=== PATIENT | female | born 2000 | race Caucasian/White ===

== ENCOUNTER 2018-04-12 18:11 | Emergency (ER) | payer MEDICAID ==
--- NOTE | 2018-04-12 19:08 | ED Physician Documentation ---
PD HPI CHEST PAIN - Stated complaint Stated Complaint: Shoulder and rib pain - Chief complaint Chief Complaint: General - History obtained from History obtained from: Patient - History of Present Illness Timing - onset: How many days ago (2-3 days of left scapular/chest pain with movement, deep breathing, and coughing. Has some cough. No fevers, sore throat, nor congestion. No injury to the area.) Timing - onset during: Light activity Timing - duration: Days (2-3) Timing - details: Gradual onset, Still present Quality: Aching, Sharp, Pain Location: Left chest, Other (scapular area) Worsened by: Inspiration, Movement, Palpation (some tender left scapular area to leaning back against chair or with palpation), Position Associated symptoms: Cough (without sputum production nor fever.). No: Shortness of air (but hurts for deep breathing), Nausea, Vomiting, Feeling faint / dizzy, General Weakness, Palpitations Similar symptoms before: Has not had sx before Review of Systems Constitutional: denies: Fever, Chills, Myalgias Nose: reports: Congestion (mild). denies: Rhinorrhea / runny nose Throat: denies: Sore throat Cardiac: reports: Chest pain / pressure. denies: Palpitations, Pedal edema, Calf pain Respiratory: reports: Cough. denies: Dyspnea, Wheezing GI: denies: Abdominal Pain, Nausea, Vomiting, Diarrhea Skin: denies: Rash, Lesions PD PAST MEDICAL HISTORY - Past Medical History Past Medical History: No Respiratory: None - Past Surgical History Past Surgical History: No - Present Medications Home Medications: Ambulatory Orders Medication Instructions Recorded Confirmed Dexamethasone [Decadron] 4 mg PO DAILY #5 tablet 04/12/18 HYDROcod/ACETAM 5/325 [[place] 5/325] 1 tab PO Q6H PRN #20 tablet 04/12/18 - Allergies Allergies/Adverse Reactions: Allergies Allergy/AdvReac Type Severity Reaction Status Date / Time amoxicillin Allergy Unknown Verified 04/12/18 18:20 Penicillins Allergy Unknown Verified 04/12/18 18:19 - Social History Does the pt smoke?: Yes Smoking Status: Current every day smoker Does the pt drink ETOH?: Yes Does the pt have substance abuse?: Yes Substance Use and Type: Marijuana - Family History Family history: denies: Aortic aneursym, Aortic dissection - Immunizations Immunizations are current?: Yes PD ED PE NORMAL - Vitals Vital signs reviewed: Yes - General General: Alert and oriented X 3, Well developed/nourished, Other (appears uncomfortable with truncal movements and deep breathing. ) - HEENT HEENT: Ears normal, Pharynx benign - Neck Neck: Supple, no meningeal sign, No adenopathy - Cardiac Cardiac: RRR, No murmur - Respiratory Respiratory: Clear bilaterally - Abdomen Abdomen: Soft, Non tender - Back Back: No spinal TTP, Other (tender in lateral scapular area muscles. ) - Derm Derm: Normal color, Warm and dry, No rash - Extremities Extremities: No tenderness to palpate, Normal ROM s pain - Neuro Neuro: Alert and oriented X 3, No motor deficit, Normal speech Results - Vitals Vitals: Vital Signs - 24 hr 04/12/18 04/12/18 18:15 20:11 Temperature 37 C 37.0 C Heart Rate 73 84 Respiratory 14 17 Rate Blood Pressure 100/74 126/77 O2 Saturation 98 98 Oxygen O2 Source Room air - Rads (name of study) chest xray Radiology: Prelim report reviewed, EMP read contemporaneously (normal lung gallego, ribs, and heart size. ) PD MEDICAL DECISION MAKING - ED course Complexity details: considered differential (sounds pleuritic. Chest xray is normal. Could be secondary to smoking and allergies. Can treat for those potentials. ), d/w patient - Sepsis Event Vital Signs: Vital Signs - 24 hr 04/12/18 04/12/18 18:15 20:11 Temperature 37 C 37.0 C Heart Rate 73 84 Respiratory 14 17 Rate Blood Pressure 100/74 126/77 O2 Saturation 98 98 Oxygen O2 Source Room air Departure - Departure Disposition: 01 Home, Self Care Clinical Impression: Left sided chest pain, Pleurisy Condition: Stable Record reviewed to determine appropriate education?: Yes Instructions: ED Chest Pain Pleurisy Prescriptions: Dexamethasone [Decadron] 4 mg PO DAILY #5 tablet HYDROcod/ACETAM 5/325 [[place] 5/325] 1 tab PO Q6H PRN #20 tablet PRN Reason: Pain Comments: Your chest xray is okay. Presume this is some inflammation around the lung and chest wall called pleurisy. There is no signs of infection at this point. No collapsed lung or fluid around the lung. Your ribs appear normal. We will treated with steroid anti-inflammatory Decadron daily for 5 more days. Continue your Aleve 2 tablets twice daily. Add Tylenol or hydrocodone if needed for pain. Off work for 2-3 days. Recheck if not improved over the next several days to week. Forms: Activity restrictions Discharge Date/Time: 04/12/18 20:49
[2018-04-12] MEDS ORDERED: HYDROcod/ACETAM 5/325 MG TABLET PO STA (19:26)
[2018-04-12] MEDS ORDERED: NAPROXEN 250 MG TABLET PO STA (19:26)
[2018-04-12] MEDS ORDERED: DEXAMETHASONE 10 MG/ML VIAL PO STA (19:26)
[2018-04-12 20:12] VITALS: BP 126/77
--- NOTE | 2018-04-12 20:25 | XRAY Report ---
Procedure Date: 04/12/2018 Accession Number: [id number] / [id number] Procedure: XR - Chest 2 View X-Ray CPT Code: 27018 FULL RESULT: EXAM: CHEST RADIOGRAPHY EXAM DATE: 04/12/2018 07:57 PM. CLINICAL HISTORY: Chest pain left sided. COMPARISON: None. TECHNIQUE: 2 views. FINDINGS: Lungs/Pleura: No dense consolidation. No large effusion or pneumothorax. No pulmonary edema. Mediastinum: Heart and mediastinal contours are unremarkable. Other: None. IMPRESSION: No acute radiographic pulmonary abnormalities. RADIA
== END 2018-04-12 20:49 | disposition home or self-care (01) ==
LOC: ED 18:11
DX: R07.89 Other chest pain (principal); R09.1 Pleurisy; F17.200 Nicotine dependence, unspecified, uncomplicated
CPT/HCPCS: 71046; 99283; A9270

== ENCOUNTER 2018-04-19 15:52 | Emergency (ER) | payer MEDICAID ==
[2018-04-19 16:12] VITALS: BP 119/78
--- NOTE | 2018-04-19 16:58 | ED Physician Documentation ---
PD HPI CHEST PAIN - Stated complaint Stated Complaint: BACK PX - Chief complaint Chief Complaint: Back Pain - History obtained from History obtained from: Patient - History of Present Illness Timing - onset: How many weeks ago (2) Timing - onset during: Light activity Timing - duration: Weeks (2) Timing - details: Gradual onset, Still present, Waxing and waning (had pain left upper chest and scapula area without obvious cause, worse with breathing and dshoulder movement. Seen in ED 5 days ago with Rx given and normal CXR. Same symptoms continue. Had decreased moderately with steroids and pain meds. Now returns.) Quality: Aching, Sharp, Pain Location: Left chest, Left shoulder/arm Improved by: Rest, Other medication Worsened by: Inspiration, Movement, Palpation Associated symptoms: Shortness of air. No: Feeling faint / dizzy, General Weakness, Palpitations Recently seen: Emergency Dept (5 days ago or so with CXR and Rx for decadron and pain meds.) Review of Systems Constitutional: denies: Fever, Chills, Myalgias, Fatigue Respiratory: reports: Cough. denies: Dyspnea, Wheezing GI: denies: Nausea, Vomiting, Diarrhea Skin: denies: Rash, Lesions Neurologic: denies: Focal weakness, Numbness, Altered mental status, Headache PD PAST MEDICAL HISTORY - Past Medical History Past Medical History: No Respiratory: None - Past Surgical History Past Surgical History: No - Present Medications Home Medications: Ambulatory Orders Medication Instructions Recorded Confirmed Albuterol 2.5 mg INH Q4H PRN #30 neb 04/19/18 Albuterol Sulf [Ventolin Hfa 1 - 2 puffs INH Q4HR PRN #1 inhaler 04/19/18 Inhaler] Dexamethasone [Decadron] 4 mg PO DAILY #5 tablet 04/19/18 HYDROcod/ACETAM 5/325 [[place] 5/325] 1 tab PO Q6H PRN #15 tablet 04/19/18 Naproxen 375 mg PO BID #20 tablet 04/19/18 - Allergies Allergies/Adverse Reactions: Allergies Allergy/AdvReac Type Severity Reaction Status Date / Time amoxicillin Allergy Unknown Verified 04/19/18 16:12 Penicillins Allergy Unknown Verified 04/19/18 16:12 - Social History Does the pt smoke?: Yes Smoking Status: Current every day smoker Does the pt drink ETOH?: Yes ETOH Use: Wine, Beer, Liquor Does the pt have substance abuse?: Yes Substance Use and Type: Marijuana - Immunizations Immunizations are current?: Yes PD ED PE NORMAL - Vitals Vital signs reviewed: Yes - General General: Alert and oriented X 3, No acute distress, Well developed/nourished - HEENT HEENT: Atraumatic, Ears normal, Pharynx benign - Neck Neck: Supple, no meningeal sign, No bony TTP, No adenopathy - Cardiac Cardiac: RRR, No murmur - Respiratory Respiratory: Clear bilaterally - Abdomen Abdomen: Soft, Non tender - Back Back: No spinal TTP, Other (left lateral scapular area with some tenderness, no rash nor sores. Seems muscular to some degree. ) - Derm Derm: Normal color, Warm and dry, No rash - Neuro Neuro: Alert and oriented X 3, No motor deficit, No sensory deficit, Normal speech Results - Vitals Vitals: Oxygen O2 Source Room air PD MEDICAL DECISION MAKING - ED course Complexity details: considered differential (still not sure of the cause of the pain, seems pleurisy with mild cough, and sems musculoskeletal. She does carry heavy personal bag on left shoulder often during the day, I discovered this visit. ), d/w patient - Sepsis Event Vital Signs: Oxygen O2 Source Room air Departure - Departure Disposition: 01 Home, Self Care Clinical Impression: Pleurisy, Pain of left scapula Condition: Stable Record reviewed to determine appropriate education?: Yes Instructions: Pleurisy, ED Neck Back Pain General Prescriptions: Albuterol Sulf [Ventolin Hfa Inhaler] 1 - 2 puffs INH Q4HR PRN #1 inhaler PRN Reason: Shortness Of Air/Wheezing Albuterol 2.5 mg INH Q4H PRN #30 neb PRN Reason: Wheezing Dexamethasone [Decadron] 4 mg PO DAILY #5 tablet HYDROcod/ACETAM 5/325 [[place] 5/325] 1 tab PO Q6H PRN #15 tablet PRN Reason: Pain Naproxen 375 mg PO BID #20 tablet Comments: Your pain still sounds muscular like the shoulder blade and perhaps some pleurisy related to some coughing and inflammation. Switch carrying your heavy bag from the left shoulder to the right shoulder. Use naproxen twice daily for the next 7-10 days. Decadron for inflammation. Add pain medicine if needed. Use albuterol 4 times a day if needed for wheezing cough or trouble breathing. Recheck if still not improved over the next several days to a week. Discharge Date/Time: 04/19/18 17:56
[2018-04-19] MEDS ORDERED: HYDROcod/ACETAM 5/325 MG TABLET PO STA (17:19)
[2018-04-19] MEDS ORDERED: DEXAMETHASONE 10 MG/ML VIAL PO STA (17:19)
== END 2018-04-19 17:56 | disposition home or self-care (01) ==
LOC: ED 15:52
DX: R09.1 Pleurisy (principal); M25.512 Pain in left shoulder
CPT/HCPCS: 99283; A9270

== ENCOUNTER 2018-06-08 23:51 | Outpatient (CLI) | payer MEDICAID | END 2018-06-08 23:52 | disposition critical access hospital (66) | LOC: EMS 23:51 | PROVIDERS: ATTEND Surgery | DX: R52 Pain, unspecified (principal) | CPT/HCPCS: A0425; A0429; A0999 ==

== ENCOUNTER 2018-06-09 00:16 | Emergency (ER) | payer MEDICAID ==
[2018-06-09 00:40] LABS: MUDS CUTOFF CONCENTRATIONS CUTOFF CONC BELOW:
[2018-06-09 00:54] LABS: HCG UR QUAL NEGATIVE
[2018-06-09 00:58] LABS: AMPHETAMINE SCREEN,URINE NEGATIVE (NEGATIVE); BENZODIAZEPINES SCREEN, URINE NEGATIVE (NEGATIVE); COCAINE SCREEN URINE NEGATIVE (NEGATIVE); METHADONE SCREEN, URINE NEGATIVE (NEGATIVE); METHAMPHETAMINES SCREEN, URINE NEGATIVE (NEGATIVE); OPIATE SCREEN, URINE NEGATIVE (NEGATIVE); OXYCODONE SCREEN, URINE NEGATIVE (NEGATIVE); PROPOXYPHENE SCREEN, URINE NEGATIVE (NEGATIVE); TRICYCLIC ANTIDEPRESSANT,URINE NEGATIVE (NEGATIVE)
--- NOTE | 2018-06-09 01:20 | ED Physician Documentation ---
History of Present Illness - Stated complaint Stated Complaint: MUSHROOM INJESTION - Chief complaint Chief Complaint: General - History obtained from History obtained from: Patient, EMS - History of Present Illness Timing: Today - Additonal information Additional information: Patient is a 17 year old female with no significant past medical history who is presenting to the emergency department for not feeling well after eating mushrooms. According to patient, patient's boyfriend and ems patient ate a couple of handfuls of mushrooms and smoked some marijuana and now has some abdominal pain. Review of Systems Ten Systems: 10 systems reviewed and negative Constitutional: denies: Fever, Chills Eyes: reports: Reviewed and negative Ears: reports: Reviewed and negative Throat: reports: Reviewed and negative Cardiac: denies: Chest pain / pressure, Palpitations Respiratory: denies: Dyspnea, Cough GI: reports: Abdominal Pain, Nausea. denies: Vomiting, Constipation, Diarrhea : denies: Dysuria, Frequency Skin: denies: Rash, Lesions Musculoskeletal: denies: Neck pain, Back pain Neurologic: reports: Confused, Altered mental status. denies: Generalized weakness, Head injury, LOC PD PAST MEDICAL HISTORY - Past Medical History Respiratory: None Neuro: Seizure disorder - Past Surgical History Past Surgical History: No - Present Medications Home Medications: Ambulatory Orders Medication Instructions Recorded Confirmed Albuterol 2.5 mg INH Q4H PRN #30 neb 04/19/18 Albuterol Sulf [Ventolin Hfa 1 - 2 puffs INH Q4HR PRN #1 inhaler 04/19/18 Inhaler] Dexamethasone [Decadron] 4 mg PO DAILY #5 tablet 04/19/18 HYDROcod/ACETAM 5/325 [[place] 5/325] 1 tab PO Q6H PRN #15 tablet 04/19/18 Naproxen 375 mg PO BID #20 tablet 04/19/18 - Allergies Allergies/Adverse Reactions: Allergies Allergy/AdvReac Type Severity Reaction Status Date / Time amoxicillin Allergy Unknown Verified 06/09/18 00:22 Penicillins Allergy Unknown Verified 06/09/18 00:22 - Social History Does the pt smoke?: Yes Smoking Status: Current every day smoker Does the pt drink ETOH?: Yes Does the pt have substance abuse?: Yes Substance Use and Type: Other - Immunizations Immunizations are current?: Yes PD ED PE NORMAL - Vitals Vital signs reviewed: Yes - General General: Alert and oriented X 3, No acute distress - HEENT HEENT: Atraumatic - Cardiac Cardiac: RRR - Respiratory Respiratory: No respiratory distress - Abdomen Abdomen: Soft - Derm Derm: Normal color, Warm and dry - Extremities Extremities: No deformity - Neuro Neuro: Alert and oriented X 3, No motor deficit, Normal speech Eye Opening: Spontaneous PD ED PE EXPANDED - HEENT HEENT: Dry mucous membranes - Eyes Eyes: Other (dilated pupils) - Abdomen Abdomen: Tender to palpation, Generalized/diffuse. No: Rebound, Guarding Results - Vitals Vitals: Vital Signs - 24 hr 06/09/18 06/09/18 00:14 01:01 Temperature 37.1 C Heart Rate 80 71 Respiratory 15 15 Rate Blood Pressure 140/102 H 140/93 H O2 Saturation 100 99 Oxygen O2 Source Room air - Labs Labs: Laboratory Tests 06/09/18 06/09/18 00:30 00:30 Ur Specific [place] 1.020 Urine HCG, Qual NEGATIVE Urine Opiates Screen NEGATIVE Ur Oxycodone Screen NEGATIVE Urine Methadone Screen NEGATIVE Ur Propoxyphene Screen NEGATIVE Ur Barbiturates Screen NEGATIVE Ur Tricyclics Screen NEGATIVE Ur Phencyclidine Scrn NEGATIVE Ur Amphetamine Screen NEGATIVE U Methamphetamines Scrn NEGATIVE U Benzodiazepines Scrn NEGATIVE Urine Cocaine Screen NEGATIVE U Cannabinoids Screen POSITIVE H PD MEDICAL DECISION MAKING - ED course Complexity details: reviewed old records, reviewed results, re-evaluated patient , considered differential, d/w patient ED course: Patient was seen and examined at bedside. Urine was collected. Patient was observed in the emergency department. Patient was able to ambulate without difficulty and attend to conversation. patient was tolerating PO without difficulty. patient required no further work up at this time and was stable for discharge with outpatient follow up. - Sepsis Event Vital Signs: Vital Signs - 24 hr 06/09/18 06/09/18 00:14 01:01 Temperature 37.1 C Heart Rate 80 71 Respiratory 15 15 Rate Blood Pressure 140/102 H 140/93 H O2 Saturation 100 99 Oxygen O2 Source Room air Departure - Departure Disposition: 01 Home, Self Care Clinical Impression: Accidental overdose Condition: Good Instructions: ED Overdose Accidental Follow-Up: primary,care provider [Other] - As Needed Comments: Your symptoms today were secondary to taking too much of the mushrooms and combining with marijuana had those effects. You need to be very careful with with how much and what you take because it can have very severe side effects including . You should return to the emergency department for worsening abdominal pain, or other new worsening or uncontrollable symptoms.
[2018-06-09 01:37] VITALS: BP 139/95
== END 2018-06-09 01:54 | disposition home or self-care (01) ==
LOC: EDBD → EDUNIT# → ED 00:16
DX: T62.0X1A Toxic effect of ingested mushrooms, accidental (unintentional), initial encounter (principal); R10.9 Unspecified abdominal pain; F17.200 Nicotine dependence, unspecified, uncomplicated
CPT/HCPCS: 80306; 81025; 99283

== ENCOUNTER 2019-01-31 15:03 | Emergency (ER) | payer MEDICAID ==
[2019-01-31] MEDS ORDERED: MELOXICAM 7.5 MG TABLET PO STA (15:17)
[2019-01-31] MEDS ORDERED: ALBUTEROL NEB 2.5 MG/3 ML INH STA (15:17)
--- NOTE | 2019-01-31 15:22 | ED Physician Documentation ---
History of Present Illness - Stated complaint Stated Complaint: SOA - Chief complaint Chief Complaint: Resp - History obtained from History obtained from: Patient - History of Present Illness Timing: How many weeks ago (3) Pain level max: 8 Pain level now: 6 - Additonal information Additional information: 18-year-old female presents to the emergency department with pain with breathing, mainly in the left lung for the past 3 weeks. Nothing makes it better. She took Tylenol without relief. Worse with breathing. States has had a mild cough. To smoke cigarettes as well as marijuana. Is not on control pills. No recent travel. No immobilization or surgeries. States this feels similar to when she had pleurisy in the past. Review of Systems Constitutional: denies: Fever, Chills Nose: denies: Congestion Cardiac: denies: Palpitations, Pedal edema, Calf pain GI: denies: Abdominal Pain, Vomiting, Diarrhea, Hematemesis, Bloody / black stool : denies: Dysuria, Frequency, Hesitancy, Now EGA Skin: denies: Rash Musculoskeletal: denies: Neck pain, Back pain Neurologic: denies: Headache PD PAST MEDICAL HISTORY - Past Medical History Past Medical History: Yes Respiratory: None Neuro: Seizure disorder - Past Surgical History Past Surgical History: No - Present Medications Home Medications: Ambulatory Orders Medication Instructions Recorded Confirmed Albuterol Sulf [Ventolin Hfa 1 - 2 puffs INH Q4HR PRN #1 inhaler 01/31/19 Inhaler] Meloxicam [Mobic] 15 mg PO DAILY PRN #20 tablet 01/31/19 - Allergies Allergies/Adverse Reactions: Allergies Allergy/AdvReac Type Severity Reaction Status Date / Time amoxicillin Allergy Unknown Verified 01/31/19 15:11 Penicillins Allergy Unknown Verified 01/31/19 15:11 - Social History Does the pt smoke?: Yes Smoking Status: Current every day smoker Does the pt drink ETOH?: Yes Does the pt have substance abuse?: Yes - Immunizations Immunizations are current?: Yes PD ED PE NORMAL - Vitals Vital signs reviewed: Yes - General General: Alert and oriented X 3, No acute distress, Well developed/nourished - HEENT HEENT: PERRL, Moist mucous membranes - Neck Neck: Supple, no meningeal sign - Cardiac Cardiac: RRR, Strong equal pulses - Respiratory Respiratory: No respiratory distress, Other (Diminished breath sounds bilaterally) - Derm Derm: Warm and dry - Extremities Extremities: No edema, No calf tenderness / cord - Neuro Neuro: Alert and oriented X 3 - Psych Psych: Normal mood, Normal affect Results - Vitals Vitals: Vital Signs - 24 hr 01/31/19 01/31/19 01/31/19 15:07 15:32 16:30 Temperature 36.1 C L Heart Rate 64 64 66 Respiratory 14 16 18 Rate Blood Pressure 110/50 L 114/63 O2 Saturation 100 98 Oxygen O2 Source Room air - Rads (name of study) Chest x-ray Radiology: Prelim report reviewed, EMP read contemporaneously, See rad report ( Negative chest ) PD MEDICAL DECISION MAKING - ED course Complexity details: reviewed results, re-evaluated patient, considered bong junior, d/w patient ED course: Patient feels much better after nebulizer treatment. She was also given a dose of Mobic. Symptoms nearly resolved. Likely that she has inflammatory changes in her lungs from her smoking, chemical use at work and marijuana use. Will prescribe an inhaler for home. No evidence of pulmonary embolus clinically. Patient counseled regarding signs and symptoms for which I believe and urgent re-evaluation would be necessary. Patient with good understanding of and agreement to plan and is comfortable going home at this time This document was made in part using voice recognition software. While efforts are made to proofread this document, sound alike and grammatical errors may occur. Departure - Departure Disposition: 01 Home, Self Care Clinical Impression: Asthma Qualifiers: Asthma severity: unspecified severity Asthma persistence: unspecified Asthma complication type: with acute exacerbation Qualified Code(s): J45.901 - Unspecified asthma with (acute) exacerbation Condition: Good Instructions: ED Reactive Airway Disease Follow-Up: your,doctor in 1 week [Other] Prescriptions: Albuterol Sulf [Ventolin Hfa Inhaler] 1 - 2 puffs INH Q4HR PRN #1 inhaler PRN Reason: Shortness Of Air/Wheezing Meloxicam [Mobic] 15 mg PO DAILY PRN #20 tablet PRN Reason: pain Comments: Return if you worsen. Follow-up with your doctor for further care. You should use the inhaler as needed for difficulty breathing. This should continue to improve with the inhaler usage. Discharge Date/Time: 01/31/19 16:36
[2019-01-31 16:31] VITALS: BP 114/63
[2019-01-31] MEDS ORDERED: DEXAMETHASONE 10 MG/ML VIAL PO STA (16:31)
[2019-01-31] MEDS ORDERED: CHERRY SYRUP 10 ML UDC PO ONE (16:31)
--- NOTE | 2019-01-31 16:36 | XRAY Report ---
Reason: dyspnea Procedure Date: 01/31/2019 Accession Number: [id number] / [id number] Procedure: XR - Chest 2 View X-Ray CPT Code: 42288 FULL RESULT: EXAM: CHEST RADIOGRAPHY EXAM DATE: 01/31/2019 04:06 PM. CLINICAL HISTORY: Dyspnea. COMPARISON: CHEST 2 VIEW 04/12/2018 7:52 PM. TECHNIQUE: 2 views. FINDINGS: Lungs/Pleura: No focal opacities evident. No pleural effusion. No pneumothorax. Normal volumes. Mediastinum: Heart and mediastinal contours are unremarkable. Other: None. IMPRESSION: Negative chest RADIA
== END 2019-01-31 16:36 | disposition home or self-care (01) ==
LOC: ED 15:03
DX: J45.901 Unspecified asthma with (acute) exacerbation (principal); F17.210 Nicotine dependence, cigarettes, uncomplicated; F12.90 Cannabis use, unspecified, uncomplicated
CPT/HCPCS: 71046; 94640; 94664; 99283; A9270

== ENCOUNTER 2019-03-19 10:41 | Outpatient (CLI) | payer MEDICAID ==
[2019-03-19 18:58] LABS: BASOPHILS # (AUTO) 0.1 10^3/uL (0.0-0.1); BASOPHILS % (AUTO) 0.6 %; EOSINOPHILS # (AUTO) 0.3 10^3/uL (0.0-0.7); EOSINOPHILS % (AUTO) 3.4 %; HGB - HEMOGLOBIN 13.2 g/dL (12.0-16.0); LYMPHOCYTES % (AUTO) 23.2 %; MEAN CORPUSCULAR HEMOGLOBIN 30.2 pg (27.0-31.0); MEAN CORPUSCULAR HGB CONC 33.3 g/dL (32.0-36.0); MEAN CORPUSCULAR VOLUME 90.8 fL (81.0-99.0); MEAN PLATELET VOLUME 7.6 fL (7.9-10.8); MONOCYTES # (AUTO) 0.7 10^3/uL (0.0-1.0); MONOCYTES % (AUTO) 8.2 %; NEUTROPHILS # (AUTO) 5.5 10^3/uL (1.5-6.6); NEUTROPHILS % (AUTO) 64.6 %; PLT - PLATELET COUNT 364 10^3/uL (130-450); RED BLOOD COUNT 4.38 10^6/uL (4.20-5.40); WHITE BLOOD COUNT 8.5 x10^3/uL (4.8-10.8)
[2019-03-19 19:13] LABS: ALBUMIN 4.5 g/dL (3.2-5.5); ALBUMIN/GLOBULIN RATIO 1.5 (1.0-2.2); ALKALINE PHOSPHATASE 53 IU/L (42-121); ALT ALANINE AMINOTRANSFERASE 14 IU/L (10-60); AST ASPARTATE AMINOTRANSFERASE 24 IU/L (10-42); BUN - BLOOD UREA NITROGEN 13 mg/dL (6-20); CALCIUM 9.4 mg/dL (8.5-10.3); CARBON DIOXIDE - CO2 28 mmol/L (21-32); CHLORIDE 101 mmol/L (101-111); CHOL/HDL RATIO 2.5 (<4.4); CHOLESTEROL 170 mg/dL; CREATININE 0.5 mg/dL (0.4-1.0); GFR - MDRD 157 (>89); GLUCOSE 79 mg/dL (70-100); HDL CHOLESTEROL 69 mg/dL; LDL CHOLESTEROL,CALCULATED 84 mg/dL; LDL/HDL RATIO 1.2 (<4.4); SODIUM 136 mmol/L (135-145); TOTAL PROTEIN 7.5 g/dL (6.7-8.2); URIC ACID 3.2 mg/dL (2.6-7.2); VLDL CHOLESTEROL 17 mg/dL
[2019-03-19 19:17] LABS: RHEUMATOID FACTOR NEGATIVE (Negative)
[2019-03-19 19:18] LABS: CRP - C-REACTIVE PROTEIN < 1.0 mg/dL (0-1.0)
[2019-03-21 13:06] LABS: ANA SCREEN NEGATIVE (NEGATIVE)
== END 2019-03-19 10:42 | disposition home or self-care (01) ==
LOC: LAB.WCP 10:41
PROVIDERS: ATTEND Family Medicine
DX: Z00.00 Encounter for general adult medical examination without abnormal findings (principal); M25.50 Pain in unspecified joint
CPT/HCPCS: 36415; 80053; 80061; 83721; 84443; 84550; 85025; 85651; 86038; 86140; 86200; 86430

== ENCOUNTER 2019-06-27 12:41 | Emergency (ER) | payer MEDICAID ==
[2019-06-27] MEDS ORDERED: ONDANSETRON 4 MG/2 ML VIAL IVP STA (14:00)
[2019-06-27] MEDS ORDERED: SODIUM CHLORIDE 0.9% 1,000 ML IV ONE (14:00)
--- NOTE | 2019-06-27 14:03 | ED Physician Documentation ---
PD HPI ABD PAIN - Stated complaint Stated Complaint: NAUSEA - Chief complaint Chief Complaint: General - History obtained from History obtained from: Patient - History of Present Illness Timing - onset: How many weeks ago (2) Timing - details: Intermittant Associated symptoms: Nausea, Vomiting Similar symptoms before: Has not had sx before - Additional information Additional information: The patient is a 18-year-old female who presents with vomiting that has been occurring intermittently for the past 2 weeks. She has had multiple episodes of vomiting since yesterday. She reports periumbilical abdominal discomfort that has been waxing and waning. She denies fever, diarrhea, or dysuria. Her last menstrual period was about 7 weeks ago, and she has had positive home test. She denies any prior pregnancies. She has scheduled an . Review of Systems Constitutional: denies: Fever Nose: denies: Congestion Throat: denies: Sore throat Cardiac: denies: Chest pain / pressure Respiratory: denies: Dyspnea, Cough GI: reports: Abdominal Pain (periumbilical), Nausea, Vomiting. denies: Diarrhea : reports: LMP (7 weeks ago.). denies: Dysuria, Discharge, Vaginal bleeding Skin: denies: Rash Musculoskeletal: denies: Back pain Neurologic: denies: Focal weakness, Numbness, Headache PD PAST MEDICAL HISTORY - Past Medical History Respiratory: None Neuro: Seizure disorder Musculoskeletal: Chronic back pain - Past Surgical History Past Surgical History: No - Present Medications Home Medications: Ambulatory Orders Medication Instructions Recorded Confirmed Ondansetron Odt [Zofran] 4 mg TL Q6H PRN #10 tablet 06/27/19 Maddock's Wort 150 mg PO 06/27/19 - Allergies Allergies/Adverse Reactions: Allergies Allergy/AdvReac Type Severity Reaction Status Date / Time amoxicillin Allergy Unknown Verified 06/27/19 12:51 Penicillins Allergy Unknown Verified 06/27/19 12:51 - Social History Does the pt smoke?: Yes Smoking Status: Current every day smoker Does the pt drink ETOH?: Yes Does the pt have substance abuse?: Yes - Immunizations Immunizations are current?: Yes PD ED PE NORMAL - Vitals Vital signs reviewed: Yes (normal) - General General: Alert and oriented X 3, Well developed/nourished - HEENT HEENT: Atraumatic, Pharynx benign - Neck Neck: Supple, no meningeal sign, No adenopathy - Cardiac Cardiac: RRR - Respiratory Respiratory: No respiratory distress, Clear bilaterally - Abdomen Abdomen: Normal bowel sounds, Soft, Non tender, No organomegaly - Back Back: No CVA TTP - Derm Derm: No rash - Extremities Extremities: No edema, No calf tenderness / cord - Neuro Neuro: Alert and oriented X 3, No motor deficit, Normal speech Results - Vitals Vitals: Vital Signs - 24 hr 06/27/19 06/27/19 12:48 16:11 Temperature 36.9 C 36.7 C Heart Rate 71 74 Respiratory 18 20 Rate Blood Pressure 110/56 L 117/73 O2 Saturation 100 100 Oxygen O2 Source Room air - Labs Labs: Laboratory Tests 06/27/19 15:15 Ur Specific [place] 1.025 Urine HCG, Qual POSITIVE PD MEDICAL DECISION MAKING - ED course Complexity details: reviewed results, re-evaluated patient, considered differential, d/w patient ED course: The patient's presentation is most consistent with vomiting of . Her abdominal examination is benign. Urinalysis is negative. test is positive. She does not have pelvic pain or vaginal bleeding to suggest an ectopic . Treatment in the emergency department included administration of normal saline 1 L IV, and Zofran 4 mg IV. Her symptoms markedly improved with the above treatment. She is being discharged with prescription for Zofran. 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 Departure - Departure Disposition: 01 Home, Self Care Clinical Impression: Vomiting during , First trimester Condition: Stable Instructions: ED Preg Morning Sickness Follow-Up: [facility] [Provider Group] Prescriptions: Ondansetron Odt [Zofran] 4 mg TL Q6H PRN #10 tablet PRN Reason: Nausea / Vomiting Comments: Drink plenty of fluids. You can use Zofran as prescribed as needed for nausea. Follow-up with primary provider next week as planned. Return to the emergency department if you develop increasing abdominal pain, persistent vomiting, or otherwise worsening symptoms. Discharge Date/Time: 06/27/19 16:13
[2019-06-27 15:36] LABS: HCG UR QUAL POSITIVE
[2019-06-27 16:11] VITALS: BP 117/73
== END 2019-06-27 16:13 | disposition home or self-care (01) ==
LOC: ED 12:41
DX: O21.9 Vomiting of pregnancy, unspecified (principal); Z3A.01 Less than 8 weeks gestation of pregnancy; O99.331 Smoking (tobacco) complicating pregnancy, first trimester
CPT/HCPCS: 81025; 96361; 96374; 99284

== ENCOUNTER 2019-06-29 07:06 | Emergency (ER) | payer MEDICAID ==
[2019-06-29] MEDS ORDERED: SODIUM CHLORIDE 0.9% 1,000 ML IV ONE ×2 (07:12)
[2019-06-29] MEDS ORDERED: ONDANSETRON 4 MG/2 ML VIAL IVP STA (07:20)
[2019-06-29 07:44] LABS: GLUCOSE, URINE (UA) NEGATIVE (NEGATIVE); KETONES,URINE (UA) >=80 mg/dL (NEGATIVE); LEUKOCYTE ESTERASE, URINE TRACE (NEGATIVE); NITRITE,URINE NEGATIVE (NEGATIVE); OCCULT BLOOD,URINE NEGATIVE (NEGATIVE); PH,URINE 5.5 PH (5.0-7.5); PROTEIN,URINE NEGATIVE (NEGATIVE); UROBILINOGEN,URINE 1 (NORMAL) E.U./dL (NORMAL)
--- NOTE | 2019-06-29 07:50 | ED Physician Documentation ---
History of Present Illness - Stated complaint Stated Complaint: VOMITING - Chief complaint Chief Complaint: General - History obtained from History obtained from: Patient - History of Present Illness Timing: Today Pain level max: 0 Pain level now: 0 - Additonal information Additional information: 18-year-old female, 1 para 0 presents to the emergency department for vomiting this morning. Seen here 2 days ago for same. Improved with Zofran and IV fluids. She is scheduled for an elective in 2 days. No fevers. No diarrhea. No constipation. No abdominal pain. Nothing makes it worse, better with Zofran. Review of Systems Constitutional: denies: Fever, Chills Respiratory: denies: Cough GI: reports: Nausea, Vomiting. denies: Diarrhea : denies: Dysuria, Frequency, Hesitancy Skin: denies: Rash Musculoskeletal: denies: Neck pain, Back pain Neurologic: denies: Headache PD PAST MEDICAL HISTORY - Past Medical History Past Medical History: Yes Respiratory: None Neuro: Seizure disorder Musculoskeletal: Chronic back pain - Past Surgical History Past Surgical History: No - Present Medications Home Medications: Ambulatory Orders Medication Instructions Recorded Confirmed Ondansetron Odt [Zofran] 4 mg TL Q6H PRN #10 tablet 06/27/19 06/29/19 Albuterol Sulf [Ventolin Hfa 1 - 2 puffs INH Q4HR PRN #1 inhaler 06/29/19 Inhaler] Ondansetron Odt [Zofran] 4 mg TL Q6H PRN #10 tablet 06/29/19 - Allergies Allergies/Adverse Reactions: Allergies Allergy/AdvReac Type Severity Reaction Status Date / Time amoxicillin Allergy Unknown Verified 06/27/19 12:51 Penicillins Allergy Unknown Verified 06/27/19 12:51 - Social History Does the pt smoke?: Yes Smoking Status: Current every day smoker Does the pt drink ETOH?: Yes Does the pt have substance abuse?: Yes - Immunizations Immunizations are current?: Yes PD ED PE NORMAL - Vitals Vital signs reviewed: Yes - General General: Alert and oriented X 3, No acute distress - HEENT HEENT: Moist mucous membranes - Neck Neck: Supple, no meningeal sign - Cardiac Cardiac: RRR - Respiratory Respiratory: No respiratory distress, Clear bilaterally - Abdomen Abdomen: Soft, Non tender, Non distended - Back Back: No CVA TTP - Derm Derm: Warm and dry - Extremities Extremities: No edema - Neuro Neuro: Alert and oriented X 3 - Psych Psych: Normal mood, Normal affect Results - Vitals Vitals: Vital Signs - 24 hr 06/29/19 06/29/19 07:14 08:57 Temperature 36.8 C 37.4 C Heart Rate 82 65 Respiratory 16 14 Rate Blood Pressure 122/83 H 98/65 O2 Saturation 100 100 Oxygen O2 Source Room air - Labs Labs: Laboratory Tests 06/29/19 06/29/19 06/29/19 07:34 07:50 07:50 WBC 23.6 H RBC 4.03 L Hgb 12.5 Hct 36.3 L MCV 90.1 MCH 31.0 MCHC 34.4 RDW 12.0 Plt Count 379 MPV 8.7 Neut # (Auto) 21.3 H Lymph # (Auto) 0.9 L [place] # (Auto) 1.1 H Eos # (Auto) 0.0 Baso # (Auto) 0.1 Absolute Nucleated RBC 0.00 Nucleated RBC % 0.0 Sodium 137 Potassium 3.2 L Chloride 104 Carbon Dioxide 23 Anion Gap 10.0 BUN 8 Creatinine 0.6 Estimated GFR (MDRD) 127 Glucose 108 H Calcium 9.2 Total Bilirubin 0.7 AST 18 ALT 13 Alkaline Phosphatase 37 L Total Protein 7.1 Albumin 4.3 Globulin 2.8 Albumin/Globulin Ratio 1.5 Lipase 21 L Urine Color YELLOW Urine Clarity CLEAR Urine pH 5.5 Ur Specific [place] >=1.030 H Urine Protein NEGATIVE Urine Glucose (UA) NEGATIVE Urine Ketones >=80 H Urine Occult Blood NEGATIVE Urine Nitrite NEGATIVE Urine Bilirubin SMALL H Urine Urobilinogen 1 (NORMAL) Ur Leukocyte Esterase TRACE H Urine RBC 0-5 Urine WBC 4-5 Ur Squamous Epith Cells MANY Squamous H Urine Bacteria Few Ur Microscopic Review INDICATED Urine Culture Comments NOT INDICATED PD MEDICAL DECISION MAKING - ED course Complexity details: reviewed results, re-evaluated patient, considered differential, d/w patient ED course: 18-year-old female with nausea and vomiting in early today. Feels much better after Zofran and IV fluids. Tolerating p.o. without difficulty. Did have a significant leukocytosis, mild right upper quadrant abdominal tenderness. Normal bedside ultrasound. Normal gallbladder. No peritoneal signs. No other symptoms. Patient is very well-appearing, nontoxic. Ambulate without difficulty. Patient counseled regarding signs and symptoms for which I believe and urgent re-evaluation would be necessary. Patient with good understanding of and agreement to plan and is comfortable going home at this time This document was made in part using voice recognition software. While efforts are made to proofread this document, sound alike and grammatical errors may occur. Departure - Departure Disposition: 01 Home, Self Care Clinical Impression: Vomiting during Vomiting Qualifiers: Vomiting type: unspecified Vomiting Intractability: non-intractable Nausea presence: with nausea Qualified Code(s): R11.2 - Nausea with vomiting, unspecified Leukocytosis Qualifiers: Leukocytosis type: unspecified Qualified Code(s): D72.829 - Elevated white blood cell count, unspecified Condition: Good Instructions: ED Nausea Vomiting Follow-Up: your,doctor in 3 days. [Other] Prescriptions: Albuterol Sulf [Ventolin Hfa Inhaler] 1 - 2 puffs INH Q4HR PRN #1 inhaler PRN Reason: Shortness Of Air/Wheezing Ondansetron Odt [Zofran] 4 mg TL Q6H PRN #10 tablet PRN Reason: Nausea / Vomiting Comments: Return if you worsen. Use the Zofran as previously prescribed. Drink plenty of fluids. You should have your blood counts rechecked within a week with your doctor as well. Discharge Date/Time: 06/29/19 09:15
[2019-06-29 07:55] LABS: BILIRUBIN,URINE SMALL (NEGATIVE); CLARITY,URINE CLEAR (CLEAR); ICTOTEST,URINE POSITIVE
[2019-06-29 07:57] LABS: BASOPHILS # (AUTO) 0.1 10^3/uL (0.0-0.1); BASOPHILS % (AUTO) 0.4 %; EOSINOPHILS % (AUTO) 0.2 %; HGB - HEMOGLOBIN 12.5 g/dL (12.0-16.0); LYMPHOCYTES # (AUTO) 0.9 10^3/uL (1.5-3.5); LYMPHOCYTES % (AUTO) 3.8 %; MEAN CORPUSCULAR HGB CONC 34.4 g/dL (32.0-36.0); MEAN CORPUSCULAR VOLUME 90.1 fL (81.0-99.0); MEAN PLATELET VOLUME 8.7 fL (7.9-10.8); MONOCYTES # (AUTO) 1.1 10^3/uL (0.0-1.0); MONOCYTES % (AUTO) 4.6 %; NEUTROPHILS # (AUTO) 21.3 10^3/uL (1.5-6.6); NEUTROPHILS % (AUTO) 90.1 %; PLT - PLATELET COUNT 379 10^3/uL (130-450); RED BLOOD COUNT 4.03 10^6/uL (4.20-5.40); WHITE BLOOD COUNT 23.6 x10^3/uL (4.8-10.8)
[2019-06-29 08:13] LABS: ALBUMIN 4.3 g/dL (3.2-5.5); ALBUMIN/GLOBULIN RATIO 1.5 (1.0-2.2); BILIRUBIN,TOTAL 0.7 mg/dL (0.2-1.0); CALCIUM 9.2 mg/dL (8.5-10.3); CREATININE 0.6 mg/dL (0.4-1.0); TOTAL PROTEIN 7.1 g/dL (6.7-8.2)
[2019-06-29 08:14] LABS: BACTERIA,URINE Few /HPF (None Seen); RBC,URINE 0-5 /HPF (0-5); SQUAMOUS EPITHELIAL CELL,UR MANY Squamous (<= Few)
[2019-06-29 08:58] VITALS: BP 98/65
== END 2019-06-29 09:15 | disposition home or self-care (01) ==
LOC: ED 07:06
DX: O21.0 Mild hyperemesis gravidarum (principal); D72.829 Elevated white blood cell count, unspecified; O99.331 Smoking (tobacco) complicating pregnancy, first trimester; Z3A.00 Weeks of gestation of pregnancy not specified
CPT/HCPCS: 36415; 80053; 81001; 81003; 83690; 85025; 87086; 96361; 96374; 99283

== ENCOUNTER 2019-07-02 21:29 | Emergency (ER) | payer MEDICAID ==
[2019-07-02] MEDS ORDERED: HYDROcod/ACETAM 5/325 MG TABLET PO STA (22:14)
--- NOTE | 2019-07-02 22:16 | ED Physician Documentation ---
PD HPI ABD PAIN - Stated complaint Stated Complaint: ABD PX/VOMITING - Chief complaint Chief Complaint: Abd Pain - History obtained from History obtained from: Patient - History of Present Illness Timing - onset: Yesterday (This is G1 who is about 9 weeks gestation with a confirmed IUP by ultrasound per her who took mifepristone yesterday and Cytotec today from [facility] and and today is having a lot of pelvic pain and bleeding.) Review of Systems Constitutional: reports: Reviewed and negative Nose: reports: Reviewed and negative Cardiac: reports: Reviewed and negative Respiratory: reports: Reviewed and negative PD PAST MEDICAL HISTORY - Past Medical History Respiratory: None Neuro: Seizure disorder Musculoskeletal: Chronic back pain - Past Surgical History Past Surgical History: No - Present Medications Home Medications: Ambulatory Orders Medication Instructions Recorded Confirmed Ondansetron Odt [Zofran] 4 mg TL Q6H PRN #10 tablet 06/27/19 06/29/19 Albuterol Sulf [Ventolin Hfa 1 - 2 puffs INH Q4HR PRN #1 inhaler 06/29/19 Inhaler] Ondansetron Odt [Zofran] 4 mg TL Q6H PRN #10 tablet 06/29/19 - Allergies Allergies/Adverse Reactions: Allergies Allergy/AdvReac Type Severity Reaction Status Date / Time amoxicillin Allergy Unknown Verified 07/02/19 21:33 Penicillins Allergy Unknown Verified 07/02/19 21:33 - Social History Does the pt smoke?: Yes Smoking Status: Current every day smoker Does the pt drink ETOH?: Yes Does the pt have substance abuse?: Yes - Immunizations Immunizations are current?: Yes PD ED PE NORMAL - Vitals Vital signs reviewed: Yes - General General: Alert and oriented X 3, No acute distress - Abdomen Abdomen: Normal bowel sounds, Soft, Non tender - 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), Other (Closed os, nontender, minimal slow dark bleeding from the office.) - Extremities Extremities: No edema, No calf tenderness / cord - Neuro Neuro: Alert and oriented X 3, Normal speech Results - Vitals Vitals: Vital Signs - 24 hr 07/02/19 21:33 Temperature 37.2 C Heart Rate 71 Respiratory 16 Rate Blood Pressure 105/62 O2 Saturation 100 Oxygen O2 Source Room air PD MEDICAL DECISION MAKING - ED course ED course: This is a young lady with a confirmed IUP who is status post medical who presents with pelvic pain and bleeding, her hemodynamics are excellent and on examination there is only minimal pelvic bleeding. Case discussed by phone with Dr. Rivera who agrees that these findings at this point are probably to be expected and watchful waiting and conservative care was advised. Departure - Departure Disposition: 01 Home, Self Care Clinical Impression: Vaginal bleeding Condition: Good Record reviewed to determine appropriate education?: Yes Instructions: ED Therapeutic Comments: Volume of bleeding and cramping your have is probably to be expected for being status post , return if it worsens or otherwise worries you, we are always happy to recheck it.
[2019-07-02 22:58] VITALS: BP 110/62
== END 2019-07-02 22:58 | disposition home or self-care (01) ==
LOC: ED 21:29
DX: O04.6 Delayed or excessive hemorrhage following (induced) termination of pregnancy (principal); O04.89 (Induced) termination of pregnancy with other complications; R10.2 Pelvic and perineal pain; F17.200 Nicotine dependence, unspecified, uncomplicated
CPT/HCPCS: 99282; 99283; A9270

== ENCOUNTER 2019-08-14 13:22 | Emergency (ER) | payer MEDICAID ==
[2019-08-14] MEDS ORDERED: ONDANSETRON 4 MG/2 ML VIAL IVP STA (14:15)
[2019-08-14] MEDS ORDERED: SODIUM CHLORIDE 0.9% 1,000 ML IV STA (14:15)
--- NOTE | 2019-08-14 14:32 | ED Physician Documentation ---
PD HPI NVD - Stated complaint Stated Complaint: ABD PX - Chief complaint Chief Complaint: Abd Pain - History obtained from History obtained from: Patient, Friend - History of Present Illness Timing - onset: Today Timing - duration: Days (1) Timing - details: Abrupt onset Pain level max: 5 Pain level now: 4 Associated symptoms: Abdominal pain (crampy). No: Fever, Chest pain, Hematemesis, Melena, Hematochezia, Dizzy, Near syncope / syncope, Loss of appetite, Weight loss, Dysuria, Hematuria, Vaginal bleeding, Vaginal dc, Testicular pain Contributing factors: Other (daily marijuana use). No: Sick contact, Bad food, Travel, Recent antibiotics, Alcohol use, Anticoagulated, Diabetes Improved by: Vomiting Worsened by: Eating Recently seen: Not recently seen Review of Systems Constitutional: denies: Fever, Chills Throat: denies: Sore throat Cardiac: denies: Chest pain / pressure Respiratory: denies: Cough GI: reports: Nausea, Vomiting, Diarrhea : denies: Now EGA Skin: denies: Rash PD PAST MEDICAL HISTORY - Past Medical History Past Medical History: Yes Respiratory: Other Neuro: Seizure disorder Musculoskeletal: Chronic back pain, Other - Past Surgical History Past Surgical History: No - Present Medications Home Medications: Ambulatory Orders Medication Instructions Recorded Confirmed Ondansetron Odt [Zofran] 4 mg TL Q6H PRN #10 tablet 06/27/19 06/29/19 Albuterol Sulf [Ventolin Hfa 1 - 2 puffs INH Q4HR PRN #1 inhaler 06/29/19 Inhaler] Ondansetron Odt [Zofran] 4 mg TL Q6H PRN #10 tablet 06/29/19 Ondansetron Odt [Zofran] 4 mg TL Q6H PRN #10 tablet 08/14/19 - Allergies Allergies/Adverse Reactions: Allergies Allergy/AdvReac Type Severity Reaction Status Date / Time amoxicillin Allergy Unknown Verified 07/02/19 21:33 Penicillins Allergy Unknown Verified 07/02/19 21:33 - Social History Does the pt smoke?: Yes Smoking Status: Current every day smoker Does the pt drink ETOH?: Yes Does the pt have substance abuse?: Yes Substance Use and Type: Marijuana - Immunizations Immunizations are current?: Yes - POLST Patient has POLST: No PD ED PE NORMAL - Vitals Vital signs reviewed: Yes - General General: Alert and oriented X 3, No acute distress, Well developed/nourished - HEENT HEENT: PERRL, Moist mucous membranes - Neck Neck: Supple, no meningeal sign - Cardiac Cardiac: RRR, Strong equal pulses - Respiratory Respiratory: No respiratory distress, Clear bilaterally - Abdomen Abdomen: Soft, Non tender, Non distended - Back Back: No CVA TTP, No spinal TTP - Derm Derm: Warm and dry - Extremities Extremities: No edema - Neuro Neuro: Alert and oriented X 3 - Psych Psych: Normal mood, Normal affect Results - Vitals Vitals: Vital Signs - 24 hr 08/14/19 08/14/19 13:40 16:12 Temperature 36.3 C L 36.6 C Heart Rate 63 69 Respiratory 17 16 Rate Blood Pressure 141/95 H 130/92 H O2 Saturation 99 100 Oxygen O2 Source Room air - Labs Labs: Laboratory Tests 08/14/19 08/14/19 08/14/19 14:28 14:28 16:12 WBC 20.4 H RBC 4.35 Hgb 13.5 Hct 40.8 MCV 93.8 MCH 31.0 MCHC 33.1 RDW 12.8 Plt Count 539 H MPV 9.2 Neut # (Auto) Not Reportable Lymph # (Auto) Not Reportable [place] # (Auto) Not Reportable Eos # (Auto) Not Reportable Baso # (Auto) Not Reportable Absolute Nucleated RBC Not Reportable Total Counted 100 Band Neuts % (Manual) 2 Abnorm Lymph % (Manual) 0 Nucleated RBC % Not Reportable Neutrophils # (Manual) 17.1 H Lymphocytes # (Manual) 2.7 Monocytes # (Manual) 0.6 Eosinophils # (Manual) 0.0 Basophils # (Manual) 0.0 Differential Comment MANUAL DIFFERENTIAL Platelet Estimate NORMAL (130-450,000) Platelet Morphology NORMAL APPEARANCE RBC Morph Micro Appear NORMAL APPEARANCE Sodium 139 Potassium 3.5 Chloride 102 Carbon Dioxide 22 Anion Gap 15.0 H BUN 10 Creatinine 0.6 Estimated GFR (MDRD) 127 Glucose 174 H Calcium 10.0 Total Bilirubin 1.0 AST 23 ALT 18 Alkaline Phosphatase 43 Total Protein 8.8 H Albumin 5.3 Globulin 3.5 Albumin/Globulin Ratio 1.5 Lipase 24 Urine Color YELLOW Urine Clarity CLEAR Urine pH 7.5 Ur Specific [place] 1.015 Urine Protein NEGATIVE Urine Glucose (UA) NEGATIVE Urine Ketones 40 H Urine Occult Blood MODERATE H Urine Nitrite NEGATIVE Urine Bilirubin NEGATIVE Urine Urobilinogen 0.2 (NORMAL) Ur Leukocyte Esterase NEGATIVE Urine RBC 0-5 Urine WBC 0-3 Ur Squamous Epith Cells FEW Squamous Urine Bacteria Rare Ur Microscopic Review INDICATED Urine Culture Comments NOT INDICATED Urine HCG, Qual NEGATIVE PD MEDICAL DECISION MAKING - ED course Complexity details: reviewed results, re-evaluated patient, considered differential, d/w patient ED course: Patient feels better after IV fluids and Zofran. Abdomen is soft, nontender nondistended. Tolerating p.o. without difficulty. Drinking apple juice. Patient request to go home at this time. She will follow-up with her doctor for further care. Patient counseled regarding signs and symptoms for which I believe and urgent re-evaluation would be necessary. Patient with good understanding of and agreement to plan and is comfortable going home at this time This document was made in part using voice recognition software. While efforts are made to proofread this document, sound alike and grammatical errors may occur. Departure - Departure Disposition: 01 Home, Self Care Clinical Impression: Viral gastroenteritis Leukocytosis Qualifiers: Leukocytosis type: unspecified Qualified Code(s): D72.829 - Elevated white blood cell count, unspecified Vomiting Qualifiers: Vomiting type: unspecified Vomiting Intractability: unspecified Nausea prese nce: with nausea Qualified Code(s): R11.2 - Nausea with vomiting, unspecified Condition: Good Instructions: ED Gastroenteritis Viral Follow-Up: ADÁN WEN MD [Primary Care Provider] - Within 1 week Prescriptions: Ondansetron Odt [Zofran] 4 mg TL Q6H PRN #10 tablet PRN Reason: Nausea / Vomiting Comments: Drink plenty of fluids and rest. Return if you worsen. Follow-up with your doctor for further care. Discharge Date/Time: 08/14/19 16:15
[2019-08-14 14:42] LABS: BASOPHILS % (AUTO) 0.6 %; EOSINOPHILS % (AUTO) 0.2 %; HGB - HEMOGLOBIN 13.5 g/dL (12.0-16.0); MEAN CORPUSCULAR HGB CONC 33.1 g/dL (32.0-36.0); MEAN CORPUSCULAR VOLUME 93.8 fL (81.0-99.0); MEAN PLATELET VOLUME 9.2 fL (7.9-10.8); MONOCYTES % (AUTO) 3.2 %; NEUTROPHILS % (AUTO) 85.8 %; PLT - PLATELET COUNT 539 10^3/uL (130-450); RED BLOOD COUNT 4.35 10^6/uL (4.20-5.40); RED CELL DISTRIBUTION WIDTH 12.8 % (12.0-15.0); WHITE BLOOD COUNT 20.4 x10^3/uL (4.8-10.8)
[2019-08-14 14:44] LABS: ABNORMAL LYMPHS % (MANUAL) 0 %
[2019-08-14 14:52] LABS: ALBUMIN 5.3 g/dL (3.2-5.5); ALBUMIN/GLOBULIN RATIO 1.5 (1.0-2.2); CREATININE 0.6 mg/dL (0.4-1.0); TOTAL PROTEIN 8.8 g/dL (6.7-8.2)
[2019-08-14 15:31] LABS: BAND NEUTROPHILS % (MANUAL) 2 %; DIFFERENTIAL COMMENT MANUAL DIFFERENTIAL; LYMPHOCYTES # (MANUAL) 2.7 10^3/uL (1.5-3.5); LYMPHOCYTES % (MANUAL) 13 %; MONOCYTES # (MANUAL) 0.6 10^3/uL (0.0-1.0); PLATELET ESTIMATE, MANUAL NORMAL (130-450,000) (NORMAL); PLATELET MORPHOLOGY NORMAL APPEARANCE (NORMAL); RBC MORPHOLOGY (MULTIPLE) NORMAL APPEARANCE (NORMAL)
[2019-08-14] MEDS ORDERED: SODIUM CHLORIDE 0.9% 1,000 ML IV ONE (15:32)
[2019-08-14 16:12] VITALS: BP 130/92
[2019-08-14 16:20] LABS: BILIRUBIN,URINE NEGATIVE (NEGATIVE); GLUCOSE, URINE (UA) NEGATIVE (NEGATIVE); KETONES,URINE (UA) 40 mg/dL (NEGATIVE); LEUKOCYTE ESTERASE, URINE NEGATIVE (NEGATIVE); NITRITE,URINE NEGATIVE (NEGATIVE); OCCULT BLOOD,URINE MODERATE (NEGATIVE); PH,URINE 7.5 PH (5.0-7.5); PROTEIN,URINE NEGATIVE (NEGATIVE); UROBILINOGEN,URINE 0.2 (NORMAL) E.U./dL (NORMAL)
[2019-08-14 16:23] LABS: CLARITY,URINE CLEAR (CLEAR); HCG UR QUAL NEGATIVE
[2019-08-14 16:44] LABS: BACTERIA,URINE Rare /HPF (None Seen); RBC,URINE 0-5 /HPF (0-5); SQUAMOUS EPITHELIAL CELL,UR FEW Squamous (<= Few)
== END 2019-08-14 16:15 | disposition home or self-care (01) ==
LOC: ED 13:22
DX: A08.4 Viral intestinal infection, unspecified (principal); D72.829 Elevated white blood cell count, unspecified; F17.200 Nicotine dependence, unspecified, uncomplicated
CPT/HCPCS: 36415; 80053; 81001; 81003; 81025; 83690; 85025; 87086; 96361; 96374; 99284

== ENCOUNTER 2020-03-05 12:09 | Emergency (ER) | payer OTHER, MEDICAID ==
--- NOTE | 2020-03-05 12:40 | ED Physician Documentation ---
PD HPI UPPER EXT INJURY - Stated complaint Stated Complaint: R FINGER INJURY/LAC - Chief complaint Chief Complaint: Laceration - History obtained from History obtained from: Patient - History of Present Illness Location: Right, Finger (middle finger tip) Type of injury: Laceration (she was clearing garbage or such, and there was unknownst to her a broken piece of glass in there, which cut her finger tip. SMall flap of skin that keeps lifting up and bleeds again a few times the past few days.) Where injury occurred: Work Timing - onset: How many days ago (few) Timing - duration: Days (few) Timing - details: Abrupt onset Associated symptoms: Other (The lac is tender and the skin flap lifts and hurts at times.). No: Weakness, Numbness Recently seen: Not recently seen Review of Systems Skin: reports: Laceration (s) Neurologic: denies: Focal weakness, Numbness PD PAST MEDICAL HISTORY - Past Medical History Past Medical History: Yes Respiratory: Other Neuro: Seizure disorder Musculoskeletal: Chronic back pain, Other - Past Surgical History Past Surgical History: No - Present Medications Home Medications: Ambulatory Orders Medication Instructions Recorded Confirmed Ondansetron Odt [Zofran] 4 mg TL Q6H PRN #10 tablet 06/27/19 06/29/19 Albuterol Sulf [Ventolin Hfa 1 - 2 puffs INH Q4HR PRN #1 inhaler 06/29/19 Inhaler] Ondansetron Odt [Zofran] 4 mg TL Q6H PRN #10 tablet 06/29/19 Ondansetron Odt [Zofran] 4 mg TL Q6H PRN #10 tablet 08/14/19 - Allergies Allergies/Adverse Reactions: Allergies Allergy/AdvReac Type Severity Reaction Status Date / Time amoxicillin Allergy Unknown Verified 03/05/20 12:13 Penicillins Allergy Unknown Verified 03/05/20 12:13 - Social History Does the pt smoke?: Yes Smoking Status: Current every day smoker Does the pt drink ETOH?: Yes Does the pt have substance abuse?: Yes - Immunizations Immunizations are current?: Yes - POLST Patient has POLST: No PD ED PE NORMAL - Vitals Vital signs reviewed: Yes - General General: Alert and oriented X 3, Well developed/nourished, Other (seems uncomfortable due to finger pain) - Derm Derm: Normal color, Warm and dry - Extremities Extremities: Other (right middle finger tip with small flap lac at distal phalanx palmar aspect. No FB seen. The skin injured is thin and nonviable. ) Results - Vitals Vitals: Vital Signs - 24 hr 03/05/20 03/05/20 12:13 13:25 Temperature 37.1 C 36.5 C Heart Rate 69 60 Respiratory 14 14 Rate Blood Pressure 118/72 111/54 L O2 Saturation 98 100 Oxygen O2 Source Room air PD MEDICAL DECISION MAKING - ED course Complexity details: considered differential (small flap of thin skin that is nonviable, yet seems to be hindering healing, so trimmed it off. Small vein blood vessel seem under it, so likely cause of intermittent bleeding. Should heal okay. ), d/w patient Departure - Departure Disposition: 01 Home, Self Care Clinical Impression: Skin avulsion Condition: Stable Record reviewed to determine appropriate education?: Yes Instructions: ED Avulsion Dermal Follow-Up: ADÁN WEN MD [Primary Care Provider] - Comments: The skin of that flap was too thin to really heal so I just trimmed it off. It should allow underneath her to heal better. Clean it with soap and water twice daily and apply a little bit of ointment to it to keep it slightly moist. Keep it covered and protected with Band-Aid etc. Minimal to no use of that hand for 2 to 3 days at work to minimize discomfort. Ibuprofen or naproxen 2-3 times a day and add Tylenol if needed for pains. Recheck if not improving well over the next few days and it should heal in within a week or so. Forms: Activity restrictions Discharge Date/Time: 03/05/20 14:26
[2020-03-05] MEDS ORDERED: ACETAMINOPHEN 325 MG TABLET PO STA (13:03)
[2020-03-05] MEDS ORDERED: IBUPROFEN 600 MG TABLET PO STA (13:03)
[2020-03-05] MEDS ORDERED: LIDOCAINE-EPINEPH-TETRACAINE 3 ML SYRINGE TOP STA (13:03)
[2020-03-05] MEDS ORDERED: LIDOCAINE 2%-EPI 1:100000 20 ML MDV SUBQ STA (13:08)
[2020-03-05 13:28] VITALS: BP 111/54
[2020-03-05] MEDS ORDERED: BACITRACIN ZINC OINT 1 PACKET TOP STA (14:01)
--- NOTE | 2020-03-05 14:16 | XRAY Report ---
Reason: middle finger injuey Procedure Date: 03/05/2020 Accession Number: [id number] / [id number] Procedure: XR - Finger(s) RT CPT Code: Final Report FULL RESULT: EXAM: RIGHT 3rd DIGIT RADIOGRAPHY EXAM DATE: 03/05/2020 01:44 PM. CLINICAL HISTORY: Middle finger injury. COMPARISON: None. TECHNIQUE: 3 views. FINDINGS: Bones: Normal. No fracture or bone lesion. Joints: Normal. No subluxations. Soft Tissues: soft tissue swelling. IMPRESSION: Normal digit radiography. [facility]
== END 2020-03-05 14:26 | disposition home or self-care (01) ==
LOC: ED 12:09
DX: S61.202A Unspecified open wound of right middle finger without damage to nail, initial encounter (principal); W25.XXXA Contact with sharp glass, initial encounter; Y93.E9 Activity, other interior property and clothing maintenance; F17.200 Nicotine dependence, unspecified, uncomplicated
CPT/HCPCS: 12001; 73140; 99283; A9270; 1040M

== ENCOUNTER 2020-03-29 15:53 | Emergency (ER) | payer OTHER, MEDICAID ==
--- NOTE | 2020-03-29 16:01 | ED Physician Documentation ---
PD HPI WOUND RECHECK - Stated complaint Stated Complaint: RT FINGER LAC CHECK - Histroy obtained from History obtained from: Patient - History of Present Illness Location: Right Hand Timing - onset: How many weeks ago (3) Associated symptoms: Redness, Swelling. No: Fever, Drainage Similar symptoms before: Has not had sx before Recently seen: Emergency Dept (Patient was seen about 3 weeks ago with a fingertip laceration from a piece of glass in the trash. There had not been any obvious foreign bodies at the time. An x-ray at the time did not reveal any foreign bodies. It was closed with Steri-Strips and glue and had been healing well. She just in the last 2 to 3 days had noticed redness and small bubbling and a 2 mm sized area in the area of the wound. No drainage. It is locally tender.) Review of Systems Constitutional: denies: Fever, Chills PD PAST MEDICAL HISTORY - Past Medical History Respiratory: Other Neuro: Seizure disorder Musculoskeletal: Chronic back pain, Other - Past Surgical History Past Surgical History: No - Present Medications Home Medications: Ambulatory Orders Medication Instructions Recorded Confirmed Ondansetron Odt [Zofran] 4 mg TL Q6H PRN #10 tablet 06/27/19 06/29/19 Albuterol Sulf [Ventolin Hfa 1 - 2 puffs INH Q4HR PRN #1 inhaler 06/29/19 Inhaler] Ondansetron Odt [Zofran] 4 mg TL Q6H PRN #10 tablet 06/29/19 Ondansetron Odt [Zofran] 4 mg TL Q6H PRN #10 tablet 08/14/19 Doxycycline Monohydrate 100 mg PO BID #10 tablet 03/29/20 Mupirocin 1 applic TP TID #15 g 03/29/20 Naproxen 375 mg PO BID #14 tablet 03/29/20 - Allergies Allergies/Adverse Reactions: Allergies Allergy/AdvReac Type Severity Reaction Status Date / Time amoxicillin Allergy Unknown Verified 03/29/20 16:02 Penicillins Allergy Unknown Verified 03/29/20 16:02 - Social History Does the pt smoke?: Yes Smoking Status: Current every day smoker Does the pt drink ETOH?: Yes Does the pt have substance abuse?: Yes - Immunizations Immunizations are current?: Yes - POLST Patient has POLST: No PD ED PE NORMAL - Vitals Vital signs reviewed: Yes - General General: Alert and oriented X 3, No acute distress, Well developed/nourished - Derm Derm: Normal color, Warm and dry - Extremities Extremities: Other (The right middle fingertip shows focal area of redness with slightly raised skin but no obvious fluctuance nor induration. The small raised areas only about 2 mm in size. There is little bit of redness at the base. Bedside ultrasound did not show any obvious shadowing to suggest foreign body. The wound otherwise is well-healed and there is no actual visible scar.) - Neuro Neuro: No motor deficit, No sensory deficit Results - Vitals Vitals: Vital Signs - 24 hr 03/29/20 15:55 Temperature 37.8 C H Heart Rate 84 Respiratory 18 Rate Blood Pressure 141/77 H O2 Saturation 100 Oxygen O2 Source Room air PD MEDICAL DECISION MAKING - ED course Complexity details: considered differential (wound check with possible small FB versus local infection. Review of prior xray and today bedside U/S did not see obvious FB. ), d/w patient Departure - Departure Disposition: 01 Home, Self Care Clinical Impression: Wound infection Condition: Stable Record reviewed to determine appropriate education?: Yes Follow-Up: ADÁN WEN MD [Primary Care Provider] - Prescriptions: Doxycycline Monohydrate 100 mg PO BID #10 tablet Mupirocin 1 applic TP TID #15 g Naproxen 375 mg PO BID #14 tablet Comments: It is possible there could be a very tiny shard of glass in the wound that is working its way to the surface. It is not visible on x-ray or ultrasound. Otherwise it consider a small local infection and treated with antibiotics as prescribed. Soak the area in warm water 2-3 times a day and apply mupirocin topical antibiotic. Also take oral doxycycline twice daily for the next for 5 days. Recheck if this is not improved over the next 2 to 3 days and resolved within 3 to 5 days. Use some anti-inflammatory such as naproxen or ibuprofen for pain or tenderness. Light use of that hand while its tender. Forms: Activity restrictions
[2020-03-29 16:03] VITALS: BP 141/77
[2020-03-29] MEDS ORDERED: NAPROXEN 250 MG TABLET PO STA (16:19)
[2020-03-29] MEDS ORDERED: DOXYCYCLINE 100 MG TABLET PO STA (16:19)
== END 2020-03-29 16:32 | disposition home or self-care (01) ==
LOC: ED 15:53
DX: S61.212A Laceration without foreign body of right middle finger without damage to nail, initial encounter (principal); L08.9 Local infection of the skin and subcutaneous tissue, unspecified; W25.XXXA Contact with sharp glass, initial encounter; F17.200 Nicotine dependence, unspecified, uncomplicated
CPT/HCPCS: 99283; A9270

== ENCOUNTER 2020-04-12 15:42 | Emergency (ER) | payer MEDICAID ==
[2020-04-12 15:49] VITALS: BP 138/64
--- NOTE | 2020-04-12 15:57 | ED Physician Documentation ---
History of Present Illness - Stated complaint Stated Complaint: MED REFILL - Chief complaint Chief Complaint: Wound - History obtained from History obtained from: Patient - History of Present Illness Pain level max: 2 Pain level now: 1 - Additonal information Additional information: 19-year-old female presents to the emergency department complaining of an ongoing infection in the right distal finger. Had been on doxycycline and was improving, but now seems to be worsening again. She originally injured this 2 months ago. She has had a negative x-ray and ultrasound. She states that originally she cut it on a piece of glass, she then smashed it in a door. No fevers. No drainage. Review of Systems Constitutional: denies: Fever : denies: Now EGA Skin: denies: Rash PD PAST MEDICAL HISTORY - Past Medical History Past Medical History: Yes Respiratory: Other Neuro: Seizure disorder Musculoskeletal: Chronic back pain, Other - Past Surgical History Past Surgical History: No - Present Medications Home Medications: Ambulatory Orders Medication Instructions Recorded Confirmed Ondansetron Odt [Zofran] 4 mg TL Q6H PRN #10 tablet 06/27/19 06/29/19 Albuterol Sulf [Ventolin Hfa 1 - 2 puffs INH Q4HR PRN #1 inhaler 06/29/19 Inhaler] Ondansetron Odt [Zofran] 4 mg TL Q6H PRN #10 tablet 06/29/19 Ondansetron Odt [Zofran] 4 mg TL Q6H PRN #10 tablet 08/14/19 Doxycycline Monohydrate 100 mg PO BID #10 tablet 03/29/20 Mupirocin 1 applic TP TID #15 g 03/29/20 Naproxen 375 mg PO BID #14 tablet 03/29/20 Doxycycline Hyclate 100 mg PO BID #20 capsule 04/12/20 - Allergies Allergies/Adverse Reactions: Allergies Allergy/AdvReac Type Severity Reaction Status Date / Time amoxicillin Allergy Unknown Verified 03/29/20 16:02 Penicillins Allergy Unknown Verified 03/29/20 16:02 - Social History Does the pt smoke?: Yes Smoking Status: Current every day smoker Does the pt drink ETOH?: Yes Does the pt have substance abuse?: Yes - Immunizations Immunizations are current?: Yes - POLST Patient has POLST: No PD ED PE NORMAL - Vitals Vital signs reviewed: Yes - General General: Alert and oriented X 3, No acute distress - HEENT HEENT: Moist mucous membranes - Derm Derm: Warm and dry - Extremities Extremities: Other (Mild erythema and swelling to the distal aspect of the right third digit, no evidence of felon. neurovascular intact Full range of motion without evidence of deep space infection in the hand.) - Neuro Neuro: Alert and oriented X 3 Results - Vitals Vitals: Vital Signs - 24 hr 04/12/20 15:47 Temperature 36.6 C Heart Rate 72 Respiratory 16 Rate Blood Pressure 138/64 H O2 Saturation 98 Oxygen O2 Source Room air PD MEDICAL DECISION MAKING - ED course Complexity details: considered differential, d/w patient ED course: Patient with what appears to be a mild cellulitis. Will place her back on doxycycline. We will have her follow-up closely with her doctor for further care. No abscess. No felon. Patient counseled regarding signs and symptoms for which I believe and urgent re-evaluation would be necessary. Patient with good understanding of and agreement to plan and is comfortable going home at this time This document was made in part using voice recognition software. While efforts are made to proofread this document, sound alike and grammatical errors may occur. Departure - Departure Disposition: 01 Home, Self Care Clinical Impression: Wound infection Condition: Good Instructions: ED Wound Care Follow-Up: ADÁN WEN MD [Primary Care Provider] - Within 1 week Prescriptions: Doxycycline Hyclate 100 mg PO BID #20 capsule Comments: Take all antibiotics until gone. Return if you worsen. You should follow-up with your doctor for further care. Discharge Date/Time: 04/12/20 15:59
== END 2020-04-12 15:59 | disposition home or self-care (01) ==
LOC: ED 15:42
DX: L03.011 Cellulitis of right finger (principal); F17.200 Nicotine dependence, unspecified, uncomplicated
CPT/HCPCS: 99282; 99284

== ENCOUNTER 2020-07-06 15:50 | Outpatient (CLI) | payer MEDICAID ==
--- NOTE | 2020-07-06 16:58 | XRAY Report ---
PROCEDURE: Chest 2 View X-Ray INDICATIONS: SHORTNESS OF BREATH TECHNIQUE: 2 view(s) of the chest. COMPARISON: None. FINDINGS: Surgical changes and devices: None. Lungs and pleura: No pleural effusions or pneumothorax. Lungs are clear. Mediastinum: Mediastinal contours are normal. Heart size is normal. Bones and chest wall: No suspicious bony abnormalities. Soft tissues appear unremarkable. IMPRESSION: No acute process. Reviewed by: Moiz Mackey MD on 07/06/2020 4:57 PM PDT Approved by: Moiz Mackey MD on 07/06/2020 4:57 PM PDT Station ID: [id number]
== END 2020-07-06 15:51 | disposition home or self-care (01) ==
LOC: DI 15:50
PROVIDERS: ATTEND Family Medicine
DX: R06.02 Shortness of breath (principal)
CPT/HCPCS: 71046

== ENCOUNTER 2020-07-18 14:53 | Emergency (ER) | payer MEDICAID ==
[2020-07-18] MEDS ORDERED: IPRATROPIUM/ALBUTEROL 3 ML NEB INH STA (16:00)
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
[2020-07-18 16:51] VITALS: BP 132/74
== END 2020-07-18 17:00 | disposition home or self-care (01) ==
LOC: ED 14:53
DX: J45.901 Unspecified asthma with (acute) exacerbation (principal); F17.200 Nicotine dependence, unspecified, uncomplicated
CPT/HCPCS: 94640; 99283; 99284

== ENCOUNTER 2020-07-23 11:42 | Emergency (ER) | payer MEDICAID ==
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
[2020-07-23] MEDS ORDERED: CHERRY SYRUP 10 ML UDC PO ONE (12:28)
[2020-07-23] MEDS ORDERED: IPRATROPIUM/ALBUTEROL 3 ML NEB INH STA (12:28)
[2020-07-23] MEDS ORDERED: cephALEXin 250 MG CAPSULE PO STA (12:28)
[2020-07-23] MEDS ORDERED: diphenhydrAMINE 25 MG CAPSULE PO STA (12:28)
[2020-07-23] MEDS ORDERED: DEXAMETHASONE 10 MG/ML VIAL PO STA (12:28)
--- NOTE | 2020-07-23 12:59 | XRAY Report ---
PROCEDURE: Chest 1 View X-Ray INDICATIONS: chest pain TECHNIQUE: One view of the chest was acquired. COMPARISON: Chest x-ray 07/06/2020 FINDINGS: Surgical changes and devices: None. Lungs and pleura: No pleural effusions or pneumothorax. Lungs are clear. Lungs are hyperexpanded. Mediastinum: Mediastinal contours appear normal. Heart size is normal. Bones and chest wall: No suspicious bony lesions. Overlying soft tissues appear unremarkable. IMPRESSION: No acute pulmonary process. Reviewed by: Radha Springer MD on 07/23/2020 12:58 PM PDT Approved by: Radha Springer MD on 07/23/2020 12:58 PM PDT Station ID: [id number]
[2020-07-23 14:04] VITALS: BP 136/72
== END 2020-07-23 14:10 | disposition home or self-care (01) ==
LOC: ED 11:42
DX: J45.21 Mild intermittent asthma with (acute) exacerbation (principal); F17.200 Nicotine dependence, unspecified, uncomplicated
CPT/HCPCS: 71045; 94640; 99283; 99284; A9270

== ENCOUNTER 2020-07-29 12:13 | Outpatient (CLI) | payer MEDICAID | END 2020-07-29 12:14 | disposition home or self-care (01) | LOC: LAB 12:13 | PROVIDERS: ATTEND Physician Assistant | DX: R06.02 Shortness of breath (principal) | CPT/HCPCS: 36415; 85379 ==

== ENCOUNTER 2020-08-19 09:21 | Outpatient (CLI) | payer MEDICAID ==
--- NOTE | 2020-08-19 10:15 | CT Report ---
PROCEDURE: ANGIO CHEST W/WO INDICATIONS: SOB CONTRAST: IV CONTRAST: Optiray 320 ml: 45 PO CONTRAST: *NO PO CONTRAST TECHNIQUE: After the administration of intravenous contrast, 2 mm thick sections acquired from the pulmonary api floresita to the posterior costophrenic angles. 3-dimensional maximum intensity projection (MIP) coronal a nd sagittal reformats were then acquired through the thorax. For radiation dose reduction, the follow ing was used: automated exposure control, adjustment of mA and/or kV according to patient size. COMPARISON: FINDINGS: Image quality: Excellent. Pulmonary arteries: Pulmonary arteries are normal in size, and demonstrate no intraluminal filling d efects to suggest central pulmonary embolism. Lungs and pleura: Lungs are clear. No pleural effusions or pneumothorax. Central and peripheral ai rways are patent. Mediastinum: Heart size is normal, without pericardial effusion. No mediastinal or hilar adenopathy . Thoracic aorta is normal in caliber and enhancement. Esophagus is normal in caliber, without hiat al hernia. Bones and chest wall: No suspicious bony lesions. Ribs and thoracic spine appear intact throughout. The thyroid is normal. No axillary or supraclavicular adenopathy. Abdomen: Visualized upper abdominal solid organs appear normal in the early arterial phase of enhanc ement. IMPRESSION: No pulmonary embolus found. No underlying pneumonia or pneumonitis is suspected. Reviewed by: Satish Alanis MD on 08/19/2020 10:13 AM PDT Approved by: Satish Alanis MD on 08/19/2020 10:13 AM PDT Station ID: [id number]
[2020-08-19] MEDS ORDERED: IOVERSOL 320 100 ML VIAL IVP ONE (10:23)
[2020-08-19] MEDS: IOVERSOL 320 100 ML VIAL IVP ONE (16:38)
== END 2020-08-19 09:22 | disposition home or self-care (01) ==
LOC: DI 09:21
PROVIDERS: ATTEND Physician Assistant
DX: R06.02 Shortness of breath (principal)
CPT/HCPCS: 71275; Q9967

== ENCOUNTER 2020-08-26 07:54 | Outpatient (CLI) | payer MEDICAID | END 2020-08-26 07:55 | disposition home or self-care (01) | LOC: DI 07:54 | PROVIDERS: ATTEND Physician Assistant | DX: R06.02 Shortness of breath (principal) | CPT/HCPCS: 93306 ==

== ENCOUNTER 2020-08-30 13:43 | Outpatient (CLI) | payer MEDICAID | END 2020-08-30 13:44 | disposition home or self-care (01) | LOC: RT 13:43 | PROVIDERS: ATTEND Physician Assistant | DX: J45.40 Moderate persistent asthma, uncomplicated (principal) | CPT/HCPCS: 94010 ==

== ENCOUNTER 2020-12-28 12:05 | Emergency (ER) | payer MEDICAID ==
[2020-12-28] MEDS ORDERED: SODIUM CHLORIDE 0.9% 1,000 ML IV STA (12:26)
[2020-12-28] MEDS ORDERED: HALOPERIDOL 5 MG/ML VIAL IVP ONE (12:27)
--- NOTE | 2020-12-28 12:29 | ED Physician Documentation ---
PD HPI ABD PAIN - Stated complaint Stated Complaint: nausea, abd px - Chief complaint Chief Complaint: Abd Pain - History obtained from History obtained from: Patient - Additional information Additional information: The last 3 to 4 hours she has had upper abdominal pain associated with nausea and vomiting. No diarrhea or changes in her bowel movements. No sick contacts. States she had similar symptoms in the past with hyperemesis gravidarum, she doubts now as she had her last period about a week ago but states it is not impossible. She is a frequent marijuana user. Did not note any changes in her symptoms with anything she tried at home. Review of Systems Constitutional: denies: Fever, Chills Nose: denies: Rhinorrhea / runny nose, Congestion Cardiac: denies: Chest pain / pressure Respiratory: denies: Dyspnea, Cough PD PAST MEDICAL HISTORY - Past Medical History Respiratory: Asthma, Other Neuro: Seizure disorder Musculoskeletal: Chronic back pain, Other - Past Surgical History Past Surgical History: No - Present Medications Home Medications: Ambulatory Orders Medication Instructions Recorded Confirmed Albuterol Sulf [Ventolin Hfa 1 - 2 puffs INH Q4HR PRN #1 inhaler 06/29/19 12/28/20 Inhaler] Ipratropium/Albuterol [Duoneb] 3 ml INH Q6H #30 neb 07/23/20 12/28/20 Escitalopram [Lexapro] 10 mg PO AC 12/28/20 12/28/20 Famotidine [Pepcid] 20 mg PO BID #10 tablet 12/28/20 Ondansetron Odt [Zofran] 4 mg TL Q6H PRN #10 tablet 12/28/20 lamoTRIgine [Lamictal Xr] 300 mg PO DAILY 12/28/20 12/28/20 - Allergies Allergies/Adverse Reactions: Allergies Allergy/AdvReac Type Severity Reaction Status Date / Time amoxicillin Allergy Unknown Verified 12/28/20 12:09 Penicillins Allergy Unknown Verified 12/28/20 12:09 - Social History Does the pt smoke?: Yes Smoking Status: Current every day smoker Does the pt drink ETOH?: Yes Does the pt have substance abuse?: Yes - Immunizations Immunizations are current?: Yes - POLST Patient has POLST: No PD ED PE NORMAL - Vitals Vital signs reviewed: Yes - General General: Alert and oriented X 3, Other (Requires frequent prompting to wear a mask appropriately; Appears uncomfortable) - HEENT HEENT: PERRL, EOMI - Neck Neck: Supple, no meningeal sign, No bony TTP - Cardiac Cardiac: RRR, No murmur - Respiratory Respiratory: No respiratory distress, Clear bilaterally - Abdomen Abdomen: Normal bowel sounds, Soft, Non tender - Back Back: No CVA TTP, No spinal TTP - Derm Derm: Normal color, Warm and dry - Extremities Extremities: No edema, No calf tenderness / cord - Neuro Neuro: Alert and oriented X 3, Normal speech Results - Vitals Vitals: Vital Signs - 24 hr 12/28/20 12/28/20 12/28/20 12:09 12:50 13:09 Temperature 35.4 C L Heart Rate 75 80 67 Respiratory 20 16 20 Rate Blood Pressure 129/81 H 124/66 132/107 H O2 Saturation 100 100 100 12/28/20 13:30 Temperature Heart Rate 67 Respiratory 16 Rate Blood Pressure 114/73 O2 Saturation 100 Oxygen O2 Source Room air - Labs Labs: Laboratory Tests 12/28/20 12/28/20 12:15 12:35 Sodium 135 Potassium 4.6 Chloride 99 L Carbon Dioxide 22 Anion Gap 14.0 H BUN 22 H Creatinine 0.7 Estimated GFR (MDRD) 106 Glucose 201 H Calcium 10.3 Total Bilirubin 1.2 H AST 28 ALT 23 Alkaline Phosphatase 54 Total Protein 7.8 Albumin 5.6 H Globulin 2.2 Albumin/Globulin Ratio 2.5 H Lipase 17 L Urine Color YELLOW Urine Clarity CLEAR Urine pH 7.5 Ur Specific [place] 1.020 Urine Protein 30 H Urine Glucose (UA) NEGATIVE Urine Ketones >=80 H Urine Occult Blood NEGATIVE Urine Nitrite NEGATIVE Urine Bilirubin NEGATIVE Urine Urobilinogen 0.2 (NORMAL) Ur Leukocyte Esterase NEGATIVE Urine RBC 0-5 Urine WBC 6-10 H Ur Squamous Epith Cells MOD Squamous H Amorphous Sediment Few Urine Bacteria Many H Ur Microscopic Review INDICATED Urine Culture Comments NOT INDICATED Urine HCG, Qual NEGATIVE Urine Opiates Screen NEGATIVE Ur Oxycodone Screen NEGATIVE Urine Methadone Screen NEGATIVE Ur Propoxyphene Screen NEGATIVE Ur Barbiturates Screen NEGATIVE Ur Tricyclics Screen NEGATIVE Ur Phencyclidine Scrn NEGATIVE Ur Amphetamine Screen NEGATIVE U Methamphetamines Scrn NEGATIVE U Benzodiazepines Scrn NEGATIVE Urine Cocaine Screen NEGATIVE U Cannabinoids Screen POSITIVE H PD MEDICAL DECISION MAKING - ED course ED course: 19-year-old woman with epigastric pain and vomiting. Benign exam. Feeling significantly better after Haldol but not good enough, this was followed with IV Toradol, Pepcid, and Zofran with complete relief of her symptoms. On repeat examination 2:10 PM prior to discharge she was nontender and requesting discharge. Departure - Departure Disposition: 01 Home, Self Care Clinical Impression: Abdominal pain Qualifiers: Abdominal location: epigastric Qualified Code(s): R10.13 - Epigastric pain Condition: Good Record reviewed to determine appropriate education?: Yes Instructions: Abdominal Pain Prescriptions: Famotidine [Pepcid] 20 mg PO BID #10 tablet Ondansetron Odt [Zofran] 4 mg TL Q6H PRN #10 tablet PRN Reason: Nausea / Vomiting Comments: If still sick tomorrow please return for reevaluation or anytime if worsening or new symptoms develop.
[2020-12-28 12:33] LABS: BILIRUBIN,URINE NEGATIVE (NEGATIVE); GLUCOSE, URINE (UA) NEGATIVE (NEGATIVE); KETONES,URINE (UA) >=80 mg/dL (NEGATIVE); LEUKOCYTE ESTERASE, URINE NEGATIVE (NEGATIVE); MUDS CUTOFF CONCENTRATIONS CUTOFF CONC BELOW:; NITRITE,URINE NEGATIVE (NEGATIVE); OCCULT BLOOD,URINE NEGATIVE (NEGATIVE); PH,URINE 7.5 PH (5.0-7.5); PROTEIN,URINE 30 mg/dL (NEGATIVE); UROBILINOGEN,URINE 0.2 (NORMAL) E.U./dL (NORMAL)
[2020-12-28 12:37] LABS: CLARITY,URINE CLEAR (CLEAR); HCG UR QUAL NEGATIVE
[2020-12-28 12:42] LABS: THC CANNABINOID SCREEN, URINE POSITIVE (NEGATIVE)
[2020-12-28 12:43] LABS: AMPHETAMINE SCREEN,URINE NEGATIVE (NEGATIVE); BARBITURATE SCREEN,UR NEGATIVE (NEGATIVE); BENZODIAZEPINES SCREEN, URINE NEGATIVE (NEGATIVE); COCAINE SCREEN URINE NEGATIVE (NEGATIVE); METHADONE SCREEN, URINE NEGATIVE (NEGATIVE); METHAMPHETAMINES SCREEN, URINE NEGATIVE (NEGATIVE); OPIATE SCREEN, URINE NEGATIVE (NEGATIVE); OXYCODONE SCREEN, URINE NEGATIVE (NEGATIVE); PROPOXYPHENE SCREEN, URINE NEGATIVE (NEGATIVE); TRICYCLIC ANTIDEPRESSANT,URINE NEGATIVE (NEGATIVE)
[2020-12-28 12:57] LABS: BACTERIA,URINE Many /HPF (None Seen); RBC,URINE 0-5 /HPF (0-5); SQUAMOUS EPITHELIAL CELL,UR MOD Squamous (<= Few)
[2020-12-28 12:58] LABS: AMORPHOUS SEDIMENT,UR Few /LPF
[2020-12-28] MEDS ORDERED: KETOROLAC 30 MG/ML VIAL IVP STA (13:09)
[2020-12-28] MEDS ORDERED: ONDANSETRON 4 MG/2 ML VIAL IVP STA (13:09)
[2020-12-28] MEDS ORDERED: FAMOTIDINE 20 MG/2 ML VIAL IVP STA (13:09)
[2020-12-28 13:57] VITALS: BP 114/73
[2020-12-28 14:07] LABS: ALBUMIN 5.6 g/dL (3.2-5.5); ALBUMIN/GLOBULIN RATIO 2.5 (1.0-2.2); BILIRUBIN,TOTAL 1.2 mg/dL (0.2-1.0); CALCIUM 10.3 mg/dL (8.5-10.3); CREATININE 0.7 mg/dL (0.4-1.0); POTASSIUM 4.6 mmol/L (3.5-5.0); TOTAL PROTEIN 7.8 g/dL (6.7-8.2)
== END 2020-12-28 14:22 | disposition home or self-care (01) ==
LOC: ED 12:05
DX: R10.13 Epigastric pain (principal); R11.2 Nausea with vomiting, unspecified; F17.200 Nicotine dependence, unspecified, uncomplicated
CPT/HCPCS: 36415; 80053; 80306; 81001; 81003; 81025; 83690; 87086; 96361; 96374; 96375; 99283

== ENCOUNTER 2021-02-26 11:12 | Emergency (ER) | payer MEDICAID ==
[2021-02-26 11:46] LABS: BASOPHILS # (AUTO) 0.1 10^3/uL (0.0-0.1); BASOPHILS % (AUTO) 0.4 %; HGB - HEMOGLOBIN 13.9 g/dL (12.0-16.0); LYMPHOCYTES # (AUTO) 1.3 10^3/uL (1.5-3.5); LYMPHOCYTES % (AUTO) 5.6 %; MEAN CORPUSCULAR HEMOGLOBIN 31.4 pg (27.0-31.0); MEAN CORPUSCULAR HGB CONC 34.8 g/dL (32.0-36.0); MEAN CORPUSCULAR VOLUME 90.5 fL (81.0-99.0); MEAN PLATELET VOLUME 9.3 fL (7.9-10.8); MONOCYTES # (AUTO) 0.7 10^3/uL (0.0-1.0); MONOCYTES % (AUTO) 2.8 %; NEUTROPHILS # (AUTO) 21.3 10^3/uL (1.5-6.6); NEUTROPHILS % (AUTO) 90.6 %; PLT - PLATELET COUNT 457 10^3/uL (130-450); RED BLOOD COUNT 4.42 10^6/uL (4.20-5.40); SLIDE REVIEW? Indicated; WHITE BLOOD COUNT 23.5 x10^3/uL (4.8-10.8)
[2021-02-26 11:58] LABS: ALBUMIN 5.3 g/dL (3.2-5.5); ALBUMIN/GLOBULIN RATIO 2.7 (1.0-2.2); BILIRUBIN,TOTAL 0.6 mg/dL (0.2-1.0); CALCIUM 9.6 mg/dL (8.5-10.3); CREATININE 0.6 mg/dL (0.4-1.0); POTASSIUM 3.8 mmol/L (3.5-5.0); TOTAL PROTEIN 7.3 g/dL (6.7-8.2)
[2021-02-26 12:05] LABS: PLATELET ESTIMATE, MANUAL INCREASED (>450,000) (NORMAL); PLATELET MORPHOLOGY NORMAL APPEARANCE (NORMAL); RBC MORPHOLOGY (MULTIPLE) NORMAL APPEARANCE (NORMAL); WBC MORPHOLOGY (MULTIPLE) NORMAL APPEARANCE (NORMAL)
[2021-02-26] MEDS ORDERED: SODIUM CHLORIDE 0.9% 1,000 ML IV STA (13:06)
[2021-02-26] MEDS ORDERED: HYDROmorphone 1 MG/ML CARPUJECT IVP STA ×2 (13:06→15:45)
[2021-02-26] MEDS ORDERED: ONDANSETRON 4 MG/2 ML VIAL IVP STA ×2 (13:06→15:45)
[2021-02-26 13:09] LABS: BILIRUBIN,URINE NEGATIVE (NEGATIVE); GLUCOSE, URINE (UA) NEGATIVE (NEGATIVE); KETONES,URINE (UA) >=80 mg/dL (NEGATIVE); LEUKOCYTE ESTERASE, URINE SMALL (NEGATIVE); NITRITE,URINE NEGATIVE (NEGATIVE); OCCULT BLOOD,URINE NEGATIVE (NEGATIVE); PH,URINE 6.5 PH (5.0-7.5); PROTEIN,URINE 30 mg/dL (NEGATIVE); UROBILINOGEN,URINE 0.2 (NORMAL) E.U./dL (NORMAL)
--- NOTE | 2021-02-26 13:09 | ED Physician Documentation ---
History of Present Illness - Stated complaint Stated Complaint: SOA/NAUSEA - Chief complaint Chief Complaint: Abd Pain - Additonal information Additional information: 20-year-old female presents the emergency department for evaluation of 3 days upper abdominal pain with vomiting and diarrhea. Denies melena, hematochezia, or hemataemsis She reports that she thinks it may be related to the Abilify which she also began 3 days ago. No fevers, no hemataemesis. No dysuria urgency but does state it sometimes is uncomfortable to urinate. No pertinent past surgical history. Review of Systems Constitutional: denies: Fever, Chills Eyes: reports: Reviewed and negative Ears: reports: Reviewed and negative Nose: reports: Reviewed and negative Throat: reports: Reviewed and negative Cardiac: reports: Reviewed and negative Respiratory: reports: Reviewed and negative GI: reports: Nausea, Vomiting. denies: Constipation, Diarrhea : reports: Other (Discomfort? With urination). denies: Dysuria, Frequency Skin: reports: Reviewed and negative Musculoskeletal: reports: Reviewed and negative PD PAST MEDICAL HISTORY - Past Medical History Respiratory: Asthma, Other Neuro: Seizure disorder Musculoskeletal: Chronic back pain, Other - Past Surgical History Past Surgical History: No - Present Medications Home Medications: Ambulatory Orders Medication Instructions Recorded Confirmed Albuterol Sulf [Ventolin Hfa 1 - 2 puffs INH Q4HR PRN #1 inhaler 06/29/19 12/28/20 Inhaler] Ipratropium/Albuterol [Duoneb] 3 ml INH Q6H #30 neb 07/23/20 12/28/20 Escitalopram [Lexapro] 10 mg PO AC 12/28/20 12/28/20 Famotidine [Pepcid] 20 mg PO BID #10 tablet 12/28/20 Ondansetron Odt [Zofran] 4 mg TL Q6H PRN #10 tablet 12/28/20 lamoTRIgine [Lamictal Xr] 300 mg PO DAILY 12/28/20 12/28/20 Azithromycin [Zithromax] 0 mg PO DAILY #6 tablet 02/26/21 Ondansetron Odt [Zofran] 4 mg TL Q6H PRN #10 tablet 02/26/21 - Allergies Allergies/Adverse Reactions: Allergies Allergy/AdvReac Type Severity Reaction Status Date / Time amoxicillin Allergy Unknown Verified 02/26/21 11:26 Penicillins Allergy Unknown Verified 02/26/21 11:26 - Social History Does the pt smoke?: Yes Smoking Status: Current every day smoker Does the pt drink ETOH?: Yes Does the pt have substance abuse?: Yes - Immunizations Immunizations are current?: Yes - POLST Patient has POLST: No PD ED PE EXPANDED - General General: Alert - Cardiac Cardiac: Regular Rate, Radial strong equal, Pedal strong equal, Cap refill < 2 sec. No: Murmur Present - Respiratory Respiratory: Clear to ausultation rajesh. No: Distress, Labored - Abdomen Abdomen: Hyperactive BS, Tender to palpation (Tenderness to the right lower quadrant right upper quadrant without guarding or rebound. Mild right CVA tenderness.) - Derm Derm: Normal color, Warm and dry. No: Rash - Extremities Extremities: Normal. No: Tenderness - Neuro Neuro: Alert and Oriented X 3, CNII-XII intact - GCS Eye Opening: Spontaneous Motor: Obeys Commands Verbal: Oriented Total: 15 Results - Vitals Vitals: Vital Signs - 24 hr 02/26/21 02/26/21 02/26/21 11:21 13:35 14:27 Temperature 36 C L Heart Rate 68 65 93 Respiratory 16 18 16 Rate Blood Pressure 130/76 129/89 H 112/57 L O2 Saturation 100 100 100 Oxygen O2 Source Room air - Labs Labs: Laboratory Tests 02/26/21 02/26/21 02/26/21 11:37 11:37 12:00 WBC 23.5 H RBC 4.42 Hgb 13.9 Hct 40.0 MCV 90.5 MCH 31.4 H MCHC 34.8 RDW 12.0 Plt Count 457 H MPV 9.3 Neut # (Auto) 21.3 H Lymph # (Auto) 1.3 L [place] # (Auto) 0.7 Eos # (Auto) 0.0 Baso # (Auto) 0.1 Absolute Nucleated RBC 0.00 Nucleated RBC % 0.0 Manual Slide Review Indicated WBC Morphology NORMAL APPEARANCE Platelet Estimate INCREASED (>450,000) Platelet Morphology NORMAL APPEARANCE RBC Morph Micro Appear NORMAL APPEARANCE Sodium 139 Potassium 3.8 Chloride 105 Carbon Dioxide 21 Anion Gap 13.0 BUN 16 Creatinine 0.6 Estimated GFR (MDRD) 125 Glucose 189 H Lactic Acid Calcium 9.6 Total Bilirubin 0.6 AST 19 ALT 19 Alkaline Phosphatase 47 Total Protein 7.3 Albumin 5.3 Globulin 2.0 L Albumin/Globulin Ratio 2.7 H Lipase 24 Urine Color YELLOW Urine Clarity HAZY Urine pH 6.5 Ur Specific [place] 1.025 Urine Protein 30 H Urine Glucose (UA) NEGATIVE Urine Ketones >=80 H Urine Occult Blood NEGATIVE Urine Nitrite NEGATIVE Urine Bilirubin NEGATIVE Urine Urobilinogen 0.2 (NORMAL) Ur Leukocyte Esterase SMALL H Urine RBC 0-5 Urine WBC 6-10 H Ur Squamous Epith Cells MANY Squamous H Urine Bacteria Few Urine Mucus Few Strands Ur Microscopic Review INDICATED Urine Culture Comments NOT INDICATED Urine HCG, Qual 02/26/21 02/26/21 12:00 13:53 WBC RBC Hgb Hct MCV MCH MCHC RDW Plt Count MPV Neut # (Auto) Lymph # (Auto) [place] # (Auto) Eos # (Auto) Baso # (Auto) Absolute Nucleated RBC Nucleated RBC % Manual Slide Review WBC Morphology Platelet Estimate Platelet Morphology RBC Morph Micro Appear Sodium Potassium Chloride Carbon Dioxide Anion Gap BUN Creatinine Estimated GFR (MDRD) Glucose Lactic Acid 1.4 Calcium Total Bilirubin AST ALT Alkaline Phosphatase Total Protein Albumin Globulin Albumin/Globulin Ratio Lipase Urine Color Urine Clarity Urine pH Ur Specific [place] Urine Protein Urine Glucose (UA) Urine Ketones Urine Occult Blood Urine Nitrite Urine Bilirubin Urine Urobilinogen Ur Leukocyte Esterase Urine RBC Urine WBC Ur Squamous Epith Cells Urine Bacteria Urine Mucus Ur Microscopic Review Urine Culture Comments Urine HCG, Qual NEGATIVE - Rads (name of study) CT abd/pel Radiology: Final report received (Segmental colonic wall thickening consistent with a probable infectious or inflammatory colitis. No evidence of acute appendicitis. Mild nonspecific gallbladder wall thickening without call calcified gallstones or pericholecystic fluid. ? acute alexis) abd US Radiology: Final report received (Negative for findings of acute cholecystitis.) PD MEDICAL DECISION MAKING - ED course Complexity details: reviewed results ED course: This is a well-appearing 20-year-old female that presents the emergency department for evaluation of 3 days vomiting and diarrhea. She had reported upper abdominal pain. Screening labs do reveal a moderate leukocytosis but there is no fever. Lactate was normal. Urine not consistent with infection. Blood cultures are pending. The rest of your screening labs and electrolytes without acute findings or concern. However given the leukocytosis we did proceed to do a CT of the abdomen pelvis. Reassuringly it did not show findings of acute appendicitis however there was segmental colonic wall thickening consistent with a probable infectious colitis. The CT did also suggest nonspecific gallbladder wall thickening that in the right setting could be consistent with acute cholecystitis. However we did also perform an abdominal ultrasound of the right upper quadrant that did not reveal findings consistent with acute cholecystitis. In addition to this she had no LFT abnormalities or bilirubin elevation. Patient symptoms were markedly improved in the emergency department following Dilaudid as well as Zofran. Labs CT imaging and ultrasound imaging findings were discussed with the patient. At this time we will discharge her with a prescription for Azithromycin (pcn allergy) as well as Zofran. Recommend clear liquids for the next 24 hours and then advance slowly as tolerated. Emergent return precautions were discussed for worsening symptoms fevers melena hematochezia or hematemesis. 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 As we discussed the CAT scan suggest that you likely have some inflammation in your colon that may be infectious. For this reason please fill the prescription for the antibiotics and begin taking as directed. I have also prescribed a medication called Zofran that should help with your nausea. For the next 24 hours drink clear liquids and slowly advance your diet as your symptoms improve. If your symptoms are not improving, you have fevers, black or bloody stools worsening symptoms or abdominal pain please return to the ER for a second evaluation.
[2021-02-26 13:10] LABS: CLARITY,URINE HAZY (CLEAR)
[2021-02-26 13:12] LABS: HCG UR QUAL NEGATIVE
[2021-02-26 13:24] LABS: RBC,URINE 0-5 /HPF (0-5); SQUAMOUS EPITHELIAL CELL,UR MANY Squamous (<= Few)
[2021-02-26] MEDS ORDERED: IOPAMIDOL-300 100 ML VIAL ONE (13:24)
[2021-02-26 13:25] LABS: BACTERIA,URINE Few /HPF (None Seen); MUCUS,URINE Few Strands
[2021-02-26] MEDS ORDERED: IOPAMIDOL-300 100 ML VIAL IVP ONE (14:16)
[2021-02-26 14:30] VITALS: BP 112/57
--- NOTE | 2021-02-26 14:39 | CT Report ---
PROCEDURE: Abdomen/Pelvis W INDICATIONS: RUQ, RLQ abd pain with vomiting CONTRAST: IV CONTRAST: Isovue 300 ml: 100 PO CONTRAST: *NO PO CONTRAST TECHNIQUE: After the administration of intravenous contrast, 5 mm thick sections acquired from the diaphragms to the symphysis. 5 mm thick coronal and sagittal reformats were acquired. For radiation dose reducti on, the following was used: automated exposure control, adjustment of mA and/or kV according to maryann ent size. COMPARISON: None. FINDINGS: Image quality: Excellent. ABDOMEN: Lung bases: Lung bases are clear. Heart size is normal. Solid organs: There is mild periportal edema in the liver without a discrete mass. Gallbladder demons trates mild wall thickening and enhancement without calcified gallstones or pericholecystic fluid. Bi liary system is non dilated. The spleen is normal in size. Pancreas enhances normally without peripa ncreatic fat stranding or fluid collections. No adrenal nodules. Kidneys demonstrate no hydronephro sis. Peritoneum and bowel: Small bowel loops demonstrate normal wall thickness and caliber. The appendix i s normal in appearance. There is mild segmental colonic wall thickening with mucosal enhancement and minimal pericolonic fat stranding beginning in the distal ascending colon with involvement of the tra nsverse, descending and sigmoid colon compatible with a mild colitis. A few colonic diverticula are p resent without acute diverticulitis. No free fluid or air. Nodes and vessels: No retroperitoneal or mesenteric adenopathy by size criteria. Aorta and inferior vena cava are normal in size. Miscellaneous: No ventral hernias. PELVIS: Genitourinary: Bladder wall thickness is normal. Miscellaneous: No inguinal hernias or adenopathy. Bones: No suspicious bony lesions. No vertebral body compression fractures. IMPRESSION: 1. Segmental colonic wall thickening as described consistent with a probable infectious or inflammato ry colitis. 2. No evidence of appendicitis. 3. Mild nonspecific gallbladder wall thickening without calcified gallstones or pericholecystic fluid . The findings are nonspecific but if there is clinical suspicion for cholecystitis, further evaluati on may be obtained with ultrasound. Reviewed by: Vimal Fragoso MD on 02/26/2021 2:37 PM PDT Approved by: Vimal Fragoso MD on 02/26/2021 2:37 PM PDT Station ID: [id number]
--- NOTE | 2021-02-26 16:27 | Ultrasound Report ---
PROCEDURE: Abdomen Limited INDICATIONS: RUQ pain; ? acute alexis TECHNIQUE: Real-time scanning was performed of the right upper quadrant abdomen, with image documentation. COMPARISON: CT of abdomen and pelvis from the same date. FINDINGS: Liver: Liver is normal in size and homogeneous in echotexture. Gallbladder: There is no gallstone. No gallbladder wall thickening or pericholecystic fluid. No sonog raphic Uribe's sign. Biliary ducts: Intrahepatic bile ducts are non-dilated. Extrahepatic bile duct caliber measures 2 m m. Normal is 6-7 mm or less in diameter, or 10 mm or less post-cholecystectomy. Pancreas: Visualized portions of the pancreas are sonographically normal. Kidneys: Right kidney measures 10 cm in length. No hydronephrosis or nephrolithiasis. No solid yemi s. IVC: Intrahepatic inferior vena cava is patent. Miscellaneous: No free abdominal fluid. IMPRESSION: Normal ultrasound examination of right upper quadrant abdomen. Reviewed by: Imer Francois MD on 02/26/2021 4:26 PM PDT Approved by: Imer Francois MD on 02/26/2021 4:26 PM PDT Station ID: [id number]
== END 2021-02-26 16:41 | disposition home or self-care (01) ==
LOC: ED 11:12
DX: R10.10 Upper abdominal pain, unspecified (principal); R11.2 Nausea with vomiting, unspecified; R19.7 Diarrhea, unspecified; D72.829 Elevated white blood cell count, unspecified; R94.8 Abnormal results of function studies of other organs and systems; G89.29 Other chronic pain; M54.9 Dorsalgia, unspecified; J45.909 Unspecified asthma, uncomplicated; F17.210 Nicotine dependence, cigarettes, uncomplicated
CPT/HCPCS: 36415; 74177; 76705; 80053; 81001; 81025; 83605; 83690; 85025; 87040; 96374; 96375; 96376; 99284; J1170; Q9967; 81003; 87086

== ENCOUNTER 2021-02-27 17:18 | Emergency (ER) | payer MEDICAID ==
[2021-02-27 18:37] LABS: BASOPHILS % (AUTO) 0.2 %; HCT - HEMATOCRIT 39.3 % (37.0-47.0); HGB - HEMOGLOBIN 13.4 g/dL (12.0-16.0); LYMPHOCYTES # (AUTO) 0.6 10^3/uL (1.5-3.5); LYMPHOCYTES % (AUTO) 4.5 %; MEAN CORPUSCULAR HEMOGLOBIN 30.8 pg (27.0-31.0); MEAN CORPUSCULAR HGB CONC 34.1 g/dL (32.0-36.0); MEAN CORPUSCULAR VOLUME 90.3 fL (81.0-99.0); MEAN PLATELET VOLUME 9.1 fL (7.9-10.8); MONOCYTES # (AUTO) 0.3 10^3/uL (0.0-1.0); MONOCYTES % (AUTO) 2.5 %; NEUTROPHILS # (AUTO) 12.4 10^3/uL (1.5-6.6); NEUTROPHILS % (AUTO) 92.5 %; PLT - PLATELET COUNT 406 10^3/uL (130-450); RED BLOOD COUNT 4.35 10^6/uL (4.20-5.40); RED CELL DISTRIBUTION WIDTH 11.9 % (12.0-15.0); WHITE BLOOD COUNT 13.4 x10^3/uL (4.8-10.8)
[2021-02-27 18:40] LABS: BILIRUBIN,URINE NEGATIVE (NEGATIVE); GLUCOSE, URINE (UA) NEGATIVE (NEGATIVE); KETONES,URINE (UA) >=80 mg/dL (NEGATIVE); LEUKOCYTE ESTERASE, URINE NEGATIVE (NEGATIVE); NITRITE,URINE NEGATIVE (NEGATIVE); OCCULT BLOOD,URINE NEGATIVE (NEGATIVE); PH,URINE 8.5 PH (5.0-7.5); PROTEIN,URINE TRACE mg/dL (NEGATIVE); UROBILINOGEN,URINE 0.2 (NORMAL) E.U./dL (NORMAL)
[2021-02-27 18:51] LABS: ALBUMIN 5.5 g/dL (3.2-5.5); ALBUMIN/GLOBULIN RATIO 2.5 (1.0-2.2); BILIRUBIN,TOTAL 1.1 mg/dL (0.2-1.0); CALCIUM 9.8 mg/dL (8.5-10.3); CLARITY,URINE CLEAR (CLEAR); CREATININE 0.6 mg/dL (0.4-1.0); POTASSIUM 3.4 mmol/L (3.5-5.0); TOTAL PROTEIN 7.7 g/dL (6.7-8.2)
[2021-02-27] MEDS ORDERED: SODIUM CHLORIDE 0.9% 1,000 ML IV STA ×2 (18:56→20:18)
[2021-02-27] MEDS ORDERED: HALOPERIDOL 5 MG/ML VIAL IVP ONE (18:56)
--- NOTE | 2021-02-27 18:58 | ED Physician Documentation ---
PD HPI NVD - Stated complaint Stated Complaint: ABD PX, VOMITING - Chief complaint Chief Complaint: Abd Pain - History obtained from History obtained from: Patient - History of Present Illness Timing - onset: How many days ago (4) Timing - duration: Days (4) Timing - details: Gradual onset, Still present Associated symptoms: Abdominal pain, Dizzy, Loss of appetite. No: Chest pain, Hematemesis, Melena Contributing factors: Other (canabis use) Improved by: Vomiting Worsened by: Eating Similar symptoms before: Diagnosis (gastroenteritits, hyperemesis gravidarium) Recently seen: Emergency Dept - Additonal information Additional information: 20-year-old female seen in the emergency department yesterday for vomiting and abdominal pain had a work-up done and was given intravenous fluids and antimedic. She improved went home did not fill her medications continue to vomit today and has come back to the emergency department nauseated vomiting and feeling dehydrated. Review of Systems Constitutional: denies: Fever Eyes: denies: Decreased vision Ears: denies: Ear pain Nose: denies: Congestion Throat: denies: Sore throat Respiratory: denies: Cough GI: reports: Abdominal Pain, Nausea, Vomiting : denies: Dysuria, Frequency PD PAST MEDICAL HISTORY - Past Medical History Past Medical History: Yes Respiratory: Asthma, Other Neuro: Seizure disorder Musculoskeletal: Chronic back pain, Other - Past Surgical History Past Surgical History: No - Present Medications Home Medications: Ambulatory Orders Medication Instructions Recorded Confirmed Albuterol Sulf [Ventolin Hfa 1 - 2 puffs INH Q4HR PRN #1 inhaler 06/29/19 02/27/21 Inhaler] Ipratropium/Albuterol [Duoneb] 3 ml INH Q6H #30 neb 07/23/20 02/27/21 Escitalopram [Lexapro] 10 mg PO AC 12/28/20 02/27/21 Ondansetron Odt [Zofran] 4 mg TL Q6H PRN #10 tablet 12/28/20 02/27/21 lamoTRIgine [Lamictal Xr] 300 mg PO DAILY 12/28/20 02/27/21 Azithromycin [Zithromax] 0 mg PO DAILY #6 tablet 02/26/21 02/27/21 Ondansetron Odt [Zofran] 4 mg TL Q6H PRN #10 tablet 02/26/21 02/27/21 - Allergies Allergies/Adverse Reactions: Allergies Allergy/AdvReac Type Severity Reaction Status Date / Time amoxicillin Allergy Unknown Verified 02/27/21 17:24 Penicillins Allergy Unknown Verified 02/27/21 17:24 - Social History Does the pt smoke?: No Smoking Status: Never smoker Does the pt drink ETOH?: Yes Does the pt have substance abuse?: Yes Substance Use and Type: Marijuana - Immunizations Immunizations are current?: Yes - POLST Patient has POLST: No PD ED PE NORMAL - Vitals Vital signs reviewed: Yes (hypertensive ) - General General: Alert and oriented X 3, Well developed/nourished, Other (appears nauseated thin female ) - HEENT HEENT: Atraumatic, PERRL, EOMI - Neck Neck: Supple, no meningeal sign, No bony TTP - Cardiac Cardiac: RRR, No murmur - Respiratory Respiratory: No respiratory distress, Clear bilaterally - Abdomen Abdomen: Normal bowel sounds, Soft, Non distended, No organomegaly, Other (mild diffuse tenderness) - Back Back: No CVA TTP, No spinal TTP - Derm Derm: Normal color, Warm and dry, No rash - Extremities Extremities: No deformity, No edema - Neuro Neuro: Alert and oriented X 3, 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, No motor deficit, No sensory deficit, Normal speech Eye Opening: Spontaneous Motor: Obeys Commands Verbal: Oriented GCS Score: 15 - Psych Psych: Normal mood, Normal affect Results - Vitals Vitals: Vital Signs - 24 hr 02/27/21 02/27/21 02/27/21 17:24 17:44 19:32 Temperature 36.5 C Heart Rate 72 82 89 Respiratory 16 16 16 Rate Blood Pressure 128/93 H 139/97 H 148/94 H O2 Saturation 100 100 100 02/27/21 02/27/21 02/27/21 19:53 21:16 21:55 Temperature 37.7 C Heart Rate 64 82 95 Respiratory 16 14 16 Rate Blood Pressure 130/83 H 115/81 H 113/64 O2 Saturation 98 100 100 Oxygen O2 Source Room air - Labs Labs: Laboratory Tests 02/27/21 02/27/21 02/27/21 18:30 18:30 18:30 WBC 13.4 H RBC 4.35 Hgb 13.4 Hct 39.3 MCV 90.3 MCH 30.8 MCHC 34.1 RDW 11.9 L Plt Count 406 MPV 9.1 Neut # (Auto) 12.4 H Lymph # (Auto) 0.6 L [place] # (Auto) 0.3 Eos # (Auto) 0.0 Baso # (Auto) 0.0 Absolute Nucleated RBC 0.00 Nucleated RBC % 0.0 Sodium 137 Potassium 3.4 L Chloride 101 Carbon Dioxide 24 Anion Gap 12.0 BUN 11 Creatinine 0.6 Estimated GFR (MDRD) 125 Glucose 125 H Calcium 9.8 Total Bilirubin 1.1 H AST 20 ALT 17 Alkaline Phosphatase 47 Total Protein 7.7 Albumin 5.5 Globulin 2.2 Albumin/Globulin Ratio 2.5 H Lipase 24 Urine Color YELLOW Urine Clarity CLEAR Urine pH 8.5 H Ur Specific [place] >=1.030 H Urine Protein TRACE Urine Glucose (UA) NEGATIVE Urine Ketones >=80 H Urine Occult Blood NEGATIVE Urine Nitrite NEGATIVE Urine Bilirubin NEGATIVE Urine Urobilinogen 0.2 (NORMAL) Ur Leukocyte Esterase NEGATIVE Ur Microscopic Review NOT INDICATED Urine Culture Comments NOT INDICATED Procedures - IVC sono (time) 1850 Bedside IVC sono: IVC measures (cm) (1.02), IVC collapsed c insp (cm) (complete), Dehydration (est 1-2 liter deficit) PD MEDICAL DECISION MAKING - ED course Complexity details: reviewed results, re-evaluated patient, considered differential, d/w patient ED course: 20-year-old female with a history of recurrent vomiting abdominal pain has had work-up done yesterday and today she has persistent symptoms. She is again given Haldol and saline with marked improvement in her symptoms. I discussed with the patient the cannabis hyperemesis she indicates that she has stopped about 3 weeks ago. We will provide some Zofran for the patient to go home with tonight. Departure - Departure Disposition: 01 Home, Self Care Clinical Impression: Nausea vomiting and diarrhea Condition: Stable Instructions: ED Diet Vomiting Diarrhea Follow-Up: ALICE LE, MSN, SOFTWARE TECHNICAL LEAD [Primary Care Provider] - Discharge Date/Time: 02/27/21 22:04
[2021-02-27] MEDS ORDERED: ONDANSETRON ODT 4 MG Prepack 2 TL PRN (20:58)
[2021-02-27 21:55] VITALS: BP 113/64
== END 2021-02-27 22:04 | disposition home or self-care (01) ==
LOC: ED 17:18
DX: R11.2 Nausea with vomiting, unspecified (principal); R19.7 Diarrhea, unspecified; E86.0 Dehydration; R10.9 Unspecified abdominal pain; Z72.89 Other problems related to lifestyle
CPT/HCPCS: 36415; 80053; 81001; 81003; 83690; 85025; 87086; 96361; 96374; 99284

== ENCOUNTER 2021-02-28 06:25 | Outpatient (CLI) | payer MEDICAID | END 2021-02-28 06:26 | disposition critical access hospital (66) | LOC: EMS 06:25 | DX: R10.9 Unspecified abdominal pain (principal); R11.10 Vomiting, unspecified; R42 Dizziness and giddiness | CPT/HCPCS: A0425; A0429 ==

== ENCOUNTER 2021-02-28 06:42 | Emergency (ER) | payer MEDICAID ==
--- NOTE | 2021-02-28 07:05 | ED Physician Documentation ---
History of Present Illness - Stated complaint Stated Complaint: ABD PX - Chief complaint Chief Complaint: Abd Pain - History obtained from History obtained from: Patient - Additonal information Additional information: 20-year-old woman with history of hyperemesis gravidarum, borderline personality disorder, depression, possible cannabis hyperemesis syndrome, p/w n/v nvnb and abdominal discomfort. This is her third visit in two days for these symptoms. she states that she feels better when she's getting treatment in the ED but then throws up as soon as she gets home. she is on day 3 of 5 of oral azithromycin. unsure if she has thrown up the tablets. patient was able to take oral zofran 1 h precinct captain and did not throw it up. She states she is still nauseous and the zofran is not helping. Review of Systems Ten Systems: 10 systems reviewed and negative Constitutional: reports: Fatigue. denies: Fever GI: reports: Abdominal Pain, Nausea, Vomiting : denies: Dysuria Musculoskeletal: denies: Back pain Neurologic: reports: Generalized weakness PD PAST MEDICAL HISTORY - Past Medical History Past Medical History: Yes Respiratory: Asthma, Other Neuro: Seizure disorder Musculoskeletal: Chronic back pain, Other - Past Surgical History Past Surgical History: No - Present Medications Home Medications: Ambulatory Orders Medication Instructions Recorded Confirmed Albuterol Sulf [Ventolin Hfa 1 - 2 puffs INH Q4HR PRN #1 inhaler 06/29/19 02/28/21 Inhaler] Ipratropium/Albuterol [Duoneb] 3 ml INH Q6H #30 neb 07/23/20 02/28/21 Escitalopram [Lexapro] 10 mg PO AC 12/28/20 02/28/21 Ondansetron Odt [Zofran] 4 mg TL Q6H PRN #10 tablet 12/28/20 02/28/21 lamoTRIgine [Lamictal Xr] 300 mg PO DAILY 12/28/20 02/28/21 Azithromycin [Zithromax] 0 mg PO DAILY #6 tablet 02/26/21 02/28/21 Ondansetron Odt [Zofran] 4 mg TL Q6H PRN #10 tablet 02/26/21 02/28/21 Azithromycin [Zithromax] 250 mg PO UD 5 Days #6 tablet 02/28/21 Promethazine Supp [Phenergan Supp] 25 mg OR ONCE PRN #5 supp 02/28/21 - Allergies Allergies/Adverse Reactions: Allergies Allergy/AdvReac Type Severity Reaction Status Date / Time amoxicillin Allergy Unknown Verified 02/28/21 06:53 Penicillins Allergy Unknown Verified 02/28/21 06:53 - Social History Does the pt smoke?: No Smoking Status: Never smoker Does the pt drink ETOH?: Yes Does the pt have substance abuse?: Yes - Immunizations Immunizations are current?: Yes - POLST Patient has POLST: No PD ED PE NORMAL - Vitals Vital signs reviewed: Yes - General General: Alert and oriented X 3, No acute distress, Well developed/nourished - HEENT HEENT: Atraumatic, PERRL, EOMI - Neck Neck: Supple, no meningeal sign - Cardiac Cardiac: RRR - Respiratory Respiratory: No respiratory distress, Clear bilaterally - Abdomen Abdomen: Non tender, Non distended, Other (discomfort to epigastric palpation) - Back Back: No CVA TTP - Derm Derm: Normal color, Warm and dry - Extremities Extremities: No deformity - Neuro Neuro: Alert and oriented X 3 - Psych Psych: Normal mood, Normal affect Results - Vitals Vitals: Vital Signs - 24 hr 02/28/21 06:46 Temperature 36.9 C Heart Rate 86 Respiratory 18 Rate Blood Pressure 145/102 H O2 Saturation 100 Oxygen O2 Source Room air PD MEDICAL DECISION MAKING - ED course ED course: 20-year-old woman presents with mild inflammatory versus infectious colitis, with persistent nausea at home. She is tolerating PO in the ED, no active vomiting. She did dry heave a couple times and so a shared decision was made to give oral reglan and IM haldol. Patient now resting comfortably in bed, able to drink sips of water. We discussed that she should continue her oral antibiotics and follow up with her primary doctor this week. Strict return precautions given. Departure - Departure Disposition: 01 Home, Self Care Clinical Impression: Nausea, Colitis Condition: Good Instructions: Nausea Vomit Control Prescriptions: Promethazine Supp [Phenergan Supp] 25 mg OR ONCE PRN #5 supp PRN Reason: Nausea / Vomiting Azithromycin [Zithromax] 250 mg PO UD 5 Days #6 tablet Comments: You were seen in the emergency department for nausea. Your CT of your abdomen shows thickening of the intestinal wall (colitis) which could be caused by a viral or bacterial infection. You should take antibiotics in case it is bacterial. Please restart a new azithromycin (zpack) course and throw away your old pack. The colitis could also be inflammatory, which has a lot of different causes. Make sure you avoid marijuana use for at least two months to exclude that as a possible cause. You should follow-up with your primary doctor for referral to gastroenterology if you have persistent symptoms. Please return to the emergency department if you have any new or worsening symptoms or other concerns. If you have blood in your stool or vomit then return to the ED immedi ately .
[2021-02-28] MEDS ORDERED: METOCLOPRAMIDE 10 MG TABLET PO STA (07:06)
[2021-02-28] MEDS ORDERED: HALOPERIDOL 5 MG/ML VIAL IM STA (07:08)
[2021-02-28 07:46] VITALS: BP 131/61
== END 2021-02-28 08:32 | disposition home or self-care (01) ==
LOC: EDUNIT# → ED 06:42
DX: K52.9 Noninfective gastroenteritis and colitis, unspecified (principal)
CPT/HCPCS: 96372; 99283; A9270

== ENCOUNTER 2021-03-03 00:32 | Emergency (ER) | payer MEDICAID ==
[2021-03-03] MEDS ORDERED: SODIUM CHLORIDE 0.9% 1,000 ML IV STA ×2 (01:02→02:56)
--- NOTE | 2021-03-03 01:06 | ED Physician Documentation ---
PD HPI NVD - Stated complaint Stated Complaint: AB PX/NAUSEA - Chief complaint Chief Complaint: Abd Pain - History obtained from History obtained from: Patient - History of Present Illness Timing - onset: How many days ago (1 week ago) Timing - details: Intermittant, Waxing and waning Pain level now: 2 Associated symptoms: Abdominal pain Improved by: Meds Worsened by: Eating Recently seen: Emergency Dept - Additonal information Additional information: patient c/o one week of episodic nausea and vomiting with abdominal cramping. She has been evaluated three times previous tonight in this emergency department for the same symptoms over the past five days. She says that each time shes been discharged, her symptoms have resolved after fluids and medications, but that her nausea and vomiting consistently return several hours after being discharged home. She does not have a clear or definitive diagnosis regarding The cause of the symptoms. She says she has not used marijuana for a few months. On one of her recent visits, A CAT scan of her abdomen had findings suggestive of mild colitis. She denies fever, diarrhea. On tonights presentation, she also complains of numbness and stiffness of her face and her hands and feet. Shes having some difficulty speaking on my HPI as well. Review of Systems Constitutional: reports: Reviewed and negative Cardiac: reports: Reviewed and negative Respiratory: reports: Reviewed and negative GI: reports: Abdominal Pain, Nausea, Vomiting. 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 - Past Surgical History Past Surgical History: No - Present Medications Home Medications: Ambulatory Orders Medication Instructions Recorded Confirmed Escitalopram [Lexapro] 10 mg PO AC 12/28/20 03/03/21 lamoTRIgine [Lamictal Xr] 300 mg PO DAILY 12/28/20 03/03/21 Promethazine Supp [Phenergan Supp] 25 mg AR ONCE PRN #5 supp 02/28/21 03/03/21 LORazepam [Ativan] 1 mg PO TID PRN #10 tablet 03/03/21 Promethazine Supp [Phenergan Supp] 25 mg AR Q6HR PRN #5 supp 03/03/21 haloperidoL [Haldol] 1 mg PO Q8H PRN #10 tablet 03/03/21 - Allergies Allergies/Adverse Reactions: Allergies Allergy/AdvReac Type Severity Reaction Status Date / Time amoxicillin Allergy Unknown Verified 03/03/21 00:53 Penicillins Allergy Unknown Verified 03/03/21 00:53 - Social History Does the pt smoke?: No Smoking Status: Never smoker Does the pt drink ETOH?: Yes Does the pt have substance abuse?: Yes - Immunizations Immunizations are current?: Yes - POLST Patient has POLST: No PD ED PE NORMAL - Vitals Vital signs reviewed: Yes - General General: Alert and oriented X 3, Well developed/nourished, Other (increased muscle tone in limbs (stiffness), with facial stiffness and speaking through pursed lips, gaze mostly deviated towards left but able to use extraoccular muscles in full range when tested) - HEENT HEENT: PERRL, EOMI, Moist mucous membranes - Neck Neck: Supple, no meningeal sign - Cardiac Cardiac: RRR, No murmur, No gallop, No rub - Respiratory Respiratory: No respiratory distress, Clear bilaterally - Abdomen Abdomen: Normal bowel sounds, Soft, Non tender, Non distended - Derm Derm: Normal color, Warm and dry - Neuro Neuro: Alert and oriented X 3 Results - Vitals Vitals: Vital Signs - 24 hr 03/03/21 03/03/21 03/03/21 00:51 00:57 01:12 Temperature 36.8 C Heart Rate 65 82 Respiratory 16 16 22 Rate Blood Pressure 150/89 H 122/68 O2 Saturation 100 100 03/03/21 03/03/21 03/03/21 01:26 01:30 02:11 Temperature Heart Rate 79 79 Respiratory 17 16 16 Rate Blood Pressure 103/66 O2 Saturation 100 100 03/03/21 03/03/21 03/03/21 02:14 02:44 03:02 Temperature Heart Rate 80 Respiratory 15 16 15 Rate Blood Pressure 116/67 O2 Saturation 100 03/03/21 03/03/21 03/03/21 03:20 03:26 04:00 Temperature Heart Rate 72 Respiratory 16 17 15 Rate Blood Pressure 112/61 O2 Saturation 100 03/03/21 04:18 Temperature Heart Rate Respiratory 16 Rate Blood Pressure O2 Saturation Oxygen O2 Source Room air - Labs Labs: Laboratory Tests 03/03/21 03/03/21 03/03/21 01:00 01:00 01:00 WBC 14.6 H RBC 4.76 Hgb 14.7 Hct 42.9 MCV 90.1 MCH 30.9 MCHC 34.3 RDW 11.9 L Plt Count 531 H MPV 9.3 Neut # (Auto) 9.3 H Lymph # (Auto) 3.2 [place] # (Auto) 1.8 H Eos # (Auto) 0.1 Baso # (Auto) 0.1 Absolute Nucleated RBC 0.00 Band Neuts % (Manual) Not Reportable Abnorm Lymph % (Manual) Not Reportable Nucleated RBC % 0.0 Neutrophils # (Manual) Not Reportable Lymphocytes # (Manual) Not Reportable Monocytes # (Manual) Not Reportable Eosinophils # (Manual) Not Reportable Basophils # (Manual) Not Reportable Differential Comment MANUAL=AUTO DIFF Platelet Estimate INCREASED (>450,000) RBC Morph Micro Appear NORMAL APPEARANCE Sodium 135 Potassium 3.1 L Chloride 95 L Carbon Dioxide 27 Anion Gap 13.0 BUN 12 Creatinine 0.7 Estimated GFR (MDRD) 105 Glucose 110 H Calcium 9.8 Total Bilirubin 1.3 H AST 19 ALT 24 Alkaline Phosphatase 46 Total Protein 7.4 Albumin 5.3 Globulin 2.1 Albumin/Globulin Ratio 2.5 H Lipase 29 Urine Color YELLOW Urine Clarity HAZY Urine pH 7.5 Ur Specific [place] 1.015 Urine Protein NEGATIVE Urine Glucose (UA) NEGATIVE Urine Ketones NEGATIVE Urine Occult Blood NEGATIVE Urine Nitrite NEGATIVE Urine Bilirubin NEGATIVE Urine Urobilinogen 0.2 (NORMAL) Ur Leukocyte Esterase NEGATIVE Urine RBC 0-5 Urine WBC 0-3 Ur Squamous Epith Cells FEW Squamous Amorphous Sediment Few Urine Bacteria Rare Ur Microscopic Review INDICATED Urine Culture Comments NOT INDICATED Urine HCG, Qual 03/03/21 01:00 WBC RBC Hgb Hct MCV MCH MCHC RDW Plt Count MPV Neut # (Auto) Lymph # (Auto) [place] # (Auto) Eos # (Auto) Baso # (Auto) Absolute Nucleated RBC Band Neuts % (Manual) Abnorm Lymph % (Manual) Nucleated RBC % Neutrophils # (Manual) Lymphocytes # (Manual) Monocytes # (Manual) Eosinophils # (Manual) Basophils # (Manual) Differential Comment Platelet Estimate RBC Morph Micro Appear Sodium Potassium Chloride Carbon Dioxide Anion Gap BUN Creatinine Estimated GFR (MDRD) Glucose Calcium Total Bilirubin AST ALT Alkaline Phosphatase Total Protein Albumin Globulin Albumin/Globulin Ratio Lipase Urine Color Urine Clarity Urine pH Ur Specific [place] Urine Protein Urine Glucose (UA) Urine Ketones Urine Occult Blood Urine Nitrite Urine Bilirubin Urine Urobilinogen Ur Leukocyte Esterase Urine RBC Urine WBC Ur Squamous Epith Cells Amorphous Sediment Urine Bacteria Ur Microscopic Review Urine Culture Comments Urine HCG, Qual NEGATIVE PD MEDICAL DECISION MAKING - ED course Complexity details: reviewed old records, reviewed results, re-evaluated patient, considered differential, d/w patient ED course: patient returns for recurrence of nausea vomiting. She told triage nurse she was having abdominal pain and cramping, although she denies any significant abdominal discomfort on my HPI. On initial presentation, she also has complaints and an appearance that are consistent with hyperventilation syndrome; the stiffness, numbness, and difficulty speaking rapidly resolved subsequent to 1 mg of IV lorazepam. On reevaluation, she tells me she think she probably had a panic attack. Her nausea vomiting resolved after IV fluids and a single dose of 4 mg IV Zofran. Her abdominal exam was nontender on initial exam as well as reevaluation. Her blood work is reassuring with a mild leukocytosis and mild hypokalemia. Shes well hydrated on exam, but given her recurrent retching and vomiting, shes given 2 L of fluid in the ER. Her potassium is given to her orally and she was able to tolerate this with water without recurrence of nausea or vomiting. She is in NAD and is comfortable being discharged home. She says she is out of the Phenergan suppositories and a script for this is provided. I also provide a prescription for Ativan to be used for anxiety. She requests a prescription for Haldol, as this was given to her on previous visits with good results. I provided low-dose Haldol prescription for a brief course to be used PRN. patient says she was contacted by the clinic on [address] yesterday and tentative arrangements for follow up were made for tomorrow. She plans to pursue this follow up. She is polite and even apologetic for coming to the ER. I encouraged her to follow up, but also explained that it is appropriate for her to return the emergency department if her symptoms become too severe to manage at home, such as not be able to keep even sips of fluid down (such as happened tonight). at no time did she request pain medication; I offered toradol based on the abdominal cramping she had reported to the ED RN when initially triaged. 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
[2021-03-03] MEDS ORDERED: LORazepam 2 MG/ML VIAL IVP STA (01:12)
[2021-03-03 01:26] LABS: BILIRUBIN,URINE NEGATIVE (NEGATIVE); GLUCOSE, URINE (UA) NEGATIVE (NEGATIVE); KETONES,URINE (UA) NEGATIVE (NEGATIVE); LEUKOCYTE ESTERASE, URINE NEGATIVE (NEGATIVE); NITRITE,URINE NEGATIVE (NEGATIVE); OCCULT BLOOD,URINE NEGATIVE (NEGATIVE); PH,URINE 7.5 PH (5.0-7.5); PROTEIN,URINE NEGATIVE (NEGATIVE); UROBILINOGEN,URINE 0.2 (NORMAL) E.U./dL (NORMAL)
[2021-03-03 01:27] LABS: BASOPHILS # (AUTO) 0.1 10^3/uL (0.0-0.1); BASOPHILS % (AUTO) 0.7 %; EOSINOPHILS # (AUTO) 0.1 10^3/uL (0.0-0.7); EOSINOPHILS % (AUTO) 0.7 %; HCT - HEMATOCRIT 42.9 % (37.0-47.0); HGB - HEMOGLOBIN 14.7 g/dL (12.0-16.0); LYMPHOCYTES # (AUTO) 3.2 10^3/uL (1.5-3.5); LYMPHOCYTES % (AUTO) 22.1 %; MEAN CORPUSCULAR HEMOGLOBIN 30.9 pg (27.0-31.0); MEAN CORPUSCULAR HGB CONC 34.3 g/dL (32.0-36.0); MEAN CORPUSCULAR VOLUME 90.1 fL (81.0-99.0); MEAN PLATELET VOLUME 9.3 fL (7.9-10.8); MONOCYTES # (AUTO) 1.8 10^3/uL (0.0-1.0); NEUTROPHILS # (AUTO) 9.3 10^3/uL (1.5-6.6); NEUTROPHILS % (AUTO) 63.5 %; PLT - PLATELET COUNT 531 10^3/uL (130-450); RED BLOOD COUNT 4.76 10^6/uL (4.20-5.40); RED CELL DISTRIBUTION WIDTH 11.9 % (12.0-15.0); WHITE BLOOD COUNT 14.6 x10^3/uL (4.8-10.8)
[2021-03-03 01:29] LABS: CLARITY,URINE HAZY (CLEAR); HCG UR QUAL NEGATIVE
[2021-03-03 01:31] LABS: AMORPHOUS SEDIMENT,UR Few /LPF; BACTERIA,URINE Rare /HPF (None Seen); RBC,URINE 0-5 /HPF (0-5); SQUAMOUS EPITHELIAL CELL,UR FEW Squamous (<= Few); WBC,URINE 0-3 /HPF (0-5)
[2021-03-03] MEDS ORDERED: ONDANSETRON 4 MG/2 ML VIAL IVP STA (01:31)
[2021-03-03 01:43] LABS: ALBUMIN 5.3 g/dL (3.2-5.5); ALBUMIN/GLOBULIN RATIO 2.5 (1.0-2.2); BILIRUBIN,TOTAL 1.3 mg/dL (0.2-1.0); CALCIUM 9.8 mg/dL (8.5-10.3); CREATININE 0.7 mg/dL (0.4-1.0); POTASSIUM 3.1 mmol/L (3.5-5.0); TOTAL PROTEIN 7.4 g/dL (6.7-8.2)
[2021-03-03 01:50] LABS: DIFFERENTIAL COMMENT MANUAL=AUTO DIFF; PLATELET ESTIMATE, MANUAL INCREASED (>450,000) (NORMAL); RBC MORPHOLOGY (MULTIPLE) NORMAL APPEARANCE (NORMAL)
[2021-03-03] MEDS ORDERED: POTASSIUM CHLORIDE 20 MEQ TABLET PO STA (02:48)
[2021-03-03] MEDS ORDERED: KETOROLAC 30 MG/ML VIAL IVP STA (02:54)
[2021-03-03 04:13] VITALS: BP 112/61
== END 2021-03-03 04:35 | disposition home or self-care (01) ==
LOC: ED 00:32
DX: R11.2 Nausea with vomiting, unspecified (principal); E87.6 Hypokalemia; F41.9 Anxiety disorder, unspecified
CPT/HCPCS: 36415; 80053; 81001; 81003; 81025; 83690; 85025; 87086; 96361; 96374; 96375; 99284

== ENCOUNTER 2021-03-03 18:45 | Emergency (ER) | payer MEDICAID ==
[2021-03-03 19:18] LABS: BASOPHILS # (AUTO) 0.1 10^3/uL (0.0-0.1); BASOPHILS % (AUTO) 0.6 %; EOSINOPHILS # (AUTO) 0.1 10^3/uL (0.0-0.7); EOSINOPHILS % (AUTO) 0.4 %; HCT - HEMATOCRIT 38.9 % (37.0-47.0); HGB - HEMOGLOBIN 13.1 g/dL (12.0-16.0); LYMPHOCYTES # (AUTO) 1.9 10^3/uL (1.5-3.5); LYMPHOCYTES % (AUTO) 12.9 %; MEAN CORPUSCULAR HEMOGLOBIN 31.1 pg (27.0-31.0); MEAN CORPUSCULAR HGB CONC 33.7 g/dL (32.0-36.0); MEAN CORPUSCULAR VOLUME 92.4 fL (81.0-99.0); MONOCYTES # (AUTO) 1.1 10^3/uL (0.0-1.0); MONOCYTES % (AUTO) 7.5 %; NEUTROPHILS # (AUTO) 11.3 10^3/uL (1.5-6.6); NEUTROPHILS % (AUTO) 77.6 %; PLT - PLATELET COUNT 474 10^3/uL (130-450); RED BLOOD COUNT 4.21 10^6/uL (4.20-5.40); RED CELL DISTRIBUTION WIDTH 12.1 % (12.0-15.0); WHITE BLOOD COUNT 14.5 x10^3/uL (4.8-10.8)
[2021-03-03 19:26] LABS: BILIRUBIN,URINE NEGATIVE (NEGATIVE); GLUCOSE, URINE (UA) NEGATIVE (NEGATIVE); KETONES,URINE (UA) 40 mg/dL (NEGATIVE); LEUKOCYTE ESTERASE, URINE NEGATIVE (NEGATIVE); NITRITE,URINE NEGATIVE (NEGATIVE); OCCULT BLOOD,URINE TRACE-INTA (NEGATIVE); PH,URINE 6.5 PH (5.0-7.5); PROTEIN,URINE NEGATIVE (NEGATIVE); UROBILINOGEN,URINE 0.2 (NORMAL) E.U./dL (NORMAL)
[2021-03-03 19:29] LABS: CLARITY,URINE CLEAR (CLEAR); HCG UR QUAL NEGATIVE
[2021-03-03 19:31] LABS: ALBUMIN 4.7 g/dL (3.2-5.5); ALBUMIN/GLOBULIN RATIO 2.5 (1.0-2.2); BILIRUBIN,TOTAL 1.2 mg/dL (0.2-1.0); CREATININE 0.6 mg/dL (0.4-1.0); POTASSIUM 3.4 mmol/L (3.5-5.0); TOTAL PROTEIN 6.6 g/dL (6.7-8.2)
[2021-03-03] MEDS ORDERED: HALOPERIDOL 5 MG/ML VIAL IVP ONE (19:53)
--- NOTE | 2021-03-03 19:53 | ED Physician Documentation ---
PD HPI ABD PAIN - Stated complaint Stated Complaint: NAUSEA/ABD PX/VOMIT/HEADACHE - Chief complaint Chief Complaint: Abd Pain - History obtained from History obtained from: Patient - Additional information Additional information: 8 days of abdominal pain, central and upper. Its associated with vomiting and diarrhea. Decreased but not absent bowel movements. Had a CT showing potential colitis in the interim. There was some concern in the past that this may be related to marijuana use. She quit 2 weeks ago but admits she has "hit it a few times since then. No history of abdominal surgeries. No possibility of . She was unable to fill the prescription for Haldol that she was given this morning, the pharmacy did not have it. She does note that it is helped in the past, and the pharmacy is ordering it may have a tomorrow. Review of Systems Ten Systems: 10 systems reviewed and negative Constitutional: reports: Fatigue. 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 : None HEENT: None Psych: None Musculoskeletal: Chronic back pain, Other Derm: None - Past Surgical History Past Surgical History: No - Present Medications Home Medications: Ambulatory Orders Medication Instructions Recorded Confirmed Escitalopram [Lexapro] 10 mg PO AC 12/28/20 03/03/21 lamoTRIgine [Lamictal Xr] 300 mg PO DAILY 12/28/20 03/03/21 Promethazine Supp [Phenergan Supp] 25 mg [place] ONCE PRN #5 supp 02/28/21 03/03/21 LORazepam [Ativan] 1 mg PO TID PRN #10 tablet 03/03/21 Promethazine Supp [Phenergan Supp] 25 mg [place] Q6HR PRN #5 supp 03/03/21 haloperidoL [Haldol] 1 mg PO Q8H PRN #10 tablet 03/03/21 - Allergies Allergies/Adverse Reactions: Allergies Allergy/AdvReac Type Severity Reaction Status Date / Time amoxicillin Allergy Unknown Verified 03/03/21 19:05 Penicillins Allergy Unknown Verified 03/03/21 19:05 - Social History Does the pt smoke?: No Smoking Status: Never smoker Does the pt drink ETOH?: Yes Does the pt have substance abuse?: Yes - Immunizations Immunizations are current?: Yes - POLST Patient has POLST: No PD ED PE NORMAL - Vitals Vital signs reviewed: Yes - General General: Alert and oriented X 3, No acute distress - Abdomen Abdomen: Normal bowel sounds, Soft, Non tender - Neuro Neuro: Alert and oriented X 3, Normal speech Results - Vitals Vitals: Vital Signs - 24 hr 03/03/21 19:01 Temperature 36.1 C L Heart Rate 71 Respiratory 18 Rate Blood Pressure 137/90 H O2 Saturation 97 Oxygen O2 Source Room air - Labs Labs: Laboratory Tests 03/03/21 03/03/21 03/03/21 19:13 19:13 19:16 WBC 14.5 H RBC 4.21 Hgb 13.1 Hct 38.9 MCV 92.4 MCH 31.1 H MCHC 33.7 RDW 12.1 Plt Count 474 H MPV 9.0 Neut # (Auto) 11.3 H Lymph # (Auto) 1.9 [place] # (Auto) 1.1 H Eos # (Auto) 0.1 Baso # (Auto) 0.1 Absolute Nucleated RBC 0.00 Nucleated RBC % 0.0 Sodium 136 Potassium 3.4 L Chloride 103 Carbon Dioxide 21 Anion Gap 12.0 BUN 10 Creatinine 0.6 Estimated GFR (MDRD) 125 Glucose 101 H Calcium 9.0 Total Bilirubin 1.2 H AST 18 ALT 22 Alkaline Phosphatase 38 L Total Protein 6.6 L Albumin 4.7 Globulin 1.9 L Albumin/Globulin Ratio 2.5 H Lipase 30 Urine Color YELLOW Urine Clarity CLEAR Urine pH 6.5 Ur Specific [place] 1.025 Urine Protein NEGATIVE Urine Glucose (UA) NEGATIVE Urine Ketones 40 H Urine Occult Blood TRACE-INTA Urine Nitrite NEGATIVE Urine Bilirubin NEGATIVE Urine Urobilinogen 0.2 (NORMAL) Ur Leukocyte Esterase NEGATIVE Ur Microscopic Review NOT INDICATED Urine Culture Comments NOT INDICATED Urine HCG, Qual NEGATIVE PD MEDICAL DECISION MAKING - ED course ED course: 20yo female with exacerbation of recurrent abd pain. Some e/o colitis on recent CT but also concern for CHS. Again better and sx free p haldol. Departure - Departure Disposition: Home, Self Care Clinical Impression: Abdominal pain Qualifiers: Abdominal location: generalized Qualified Code(s): R10.84 - Generalized abdominal pain Condition: Good Record reviewed to determine appropriate education?: Yes Instructions: Abdominal Pain Comments: Fill the prescription for Haldol that you already have tomorrow. Return for new or worsening symptoms. Imperative to follow-up with a turf grower, the closest is in [place], phone number is [phone], call tomorrow for an appointment. Return anytime for new, worsening, or uncontrolled symptoms.
[2021-03-03] MEDS ORDERED: DEXTROSE 5%-LACTATED RINGERS 1,000 ML IV SCH (20:00)
[2021-03-03] MEDS ORDERED: haloperidoL 1 MG TABLET PO STA (21:43)
[2021-03-03 22:13] VITALS: BP 132/80
== END 2021-03-03 22:13 | disposition home or self-care (01) ==
LOC: ED 18:45
DX: R10.84 Generalized abdominal pain (principal); R11.2 Nausea with vomiting, unspecified; E87.6 Hypokalemia; F41.9 Anxiety disorder, unspecified
CPT/HCPCS: 36415; 80053; 81001; 81003; 81025; 83690; 85025; 96361; 96365; 96366; 96374; 96375; 99283; 99284; A9270; J2060; 87086

== ENCOUNTER 2021-03-05 16:22 | Outpatient (CLI) | payer MEDICAID ==
--- NOTE | 2021-03-05 17:04 | XRAY Report ---
PROCEDURE: Abdomen Acute INDICATIONS: ABDOMINAL PAIN TECHNIQUE: One view chest and two views of the abdomen were acquired. COMPARISON: CT abdomen and pelvis 02/26/2021 FINDINGS: Surgical changes and devices: None. Chest: Lungs are clear. Heart size is normal. No pleural effusions. No pneumoperitoneum. Abdomen: Bowel gas pattern is normal. No suspicious calcifications. Visualized solid organ contour s appear normal. Bones: No suspicious bony lesions. IMPRESSION: Normal chest and abdominal radiographs. Reviewed by: Rico Gaytan MD on 03/05/2021 5:03 PM PDT Approved by: Rico Gaytan MD on 03/05/2021 5:03 PM PDT Station ID: [id number]
[2021-03-05 17:49] LABS: BASOPHILS # (AUTO) 0.1 10^3/uL (0.0-0.1); BASOPHILS % (AUTO) 0.4 %; EOSINOPHILS % (AUTO) 0.2 %; HCT - HEMATOCRIT 39.4 % (37.0-47.0); HGB - HEMOGLOBIN 13.6 g/dL (12.0-16.0); LYMPHOCYTES # (AUTO) 1.7 10^3/uL (1.5-3.5); LYMPHOCYTES % (AUTO) 10.5 %; MEAN CORPUSCULAR HGB CONC 34.5 g/dL (32.0-36.0); MEAN CORPUSCULAR VOLUME 89.7 fL (81.0-99.0); MEAN PLATELET VOLUME 9.5 fL (7.9-10.8); MONOCYTES # (AUTO) 0.9 10^3/uL (0.0-1.0); MONOCYTES % (AUTO) 5.8 %; NEUTROPHILS # (AUTO) 13.2 10^3/uL (1.5-6.6); NEUTROPHILS % (AUTO) 82.2 %; PLT - PLATELET COUNT 549 10^3/uL (130-450); RED BLOOD COUNT 4.39 10^6/uL (4.20-5.40); RED CELL DISTRIBUTION WIDTH 11.9 % (12.0-15.0); WHITE BLOOD COUNT 16.1 x10^3/uL (4.8-10.8)
[2021-03-05 17:58] LABS: ALBUMIN 5.2 g/dL (3.2-5.5); ALBUMIN/GLOBULIN RATIO 2.7 (1.0-2.2); BILIRUBIN,TOTAL 1.5 mg/dL (0.2-1.0); CALCIUM 9.4 mg/dL (8.5-10.3); CREATININE 0.7 mg/dL (0.4-1.0); POTASSIUM 3.2 mmol/L (3.5-5.0); TOTAL PROTEIN 7.1 g/dL (6.7-8.2)
== END 2021-03-05 23:59 | disposition home or self-care (01) ==
LOC: DI.N 16:22
PROVIDERS: ATTEND Family Medicine
DX: R10.9 Unspecified abdominal pain (principal)
CPT/HCPCS: 36415; 80053; 85025

== ENCOUNTER 2021-11-28 08:28 | Emergency (ER) | payer MEDICAID ==
[2021-11-28] MEDS ORDERED: ONDANSETRON ODT 4 MG TABLET TL STA (08:53)
[2021-11-28 09:02] LABS: BILIRUBIN,URINE NEGATIVE (NEGATIVE); GLUCOSE, URINE (UA) NEGATIVE (NEGATIVE); KETONES,URINE (UA) TRACE mg/dL (NEGATIVE); LEUKOCYTE ESTERASE, URINE NEGATIVE (NEGATIVE); NITRITE,URINE NEGATIVE (NEGATIVE); OCCULT BLOOD,URINE NEGATIVE (NEGATIVE); PH,URINE 8.5 PH (5.0-7.5); PROTEIN,URINE TRACE mg/dL (NEGATIVE); UROBILINOGEN,URINE 0.2 (NORMAL) E.U./dL (NORMAL)
[2021-11-28 09:04] LABS: CLARITY,URINE CLEAR (CLEAR); HCG UR QUAL NEGATIVE
[2021-11-28 09:09] LABS: BASOPHILS # (AUTO) 0.1 10^3/uL (0.0-0.1); BASOPHILS % (AUTO) 0.4 %; EOSINOPHILS # (AUTO) 0.1 10^3/uL (0.0-0.7); EOSINOPHILS % (AUTO) 0.2 %; HCT - HEMATOCRIT 40.5 % (37.0-47.0); HGB - HEMOGLOBIN 13.7 g/dL (12.0-16.0); LYMPHOCYTES # (AUTO) 2.5 10^3/uL (1.5-3.5); LYMPHOCYTES % (AUTO) 11.9 %; MEAN CORPUSCULAR HEMOGLOBIN 30.9 pg (27.0-31.0); MEAN CORPUSCULAR HGB CONC 33.8 g/dL (32.0-36.0); MEAN CORPUSCULAR VOLUME 91.2 fL (81.0-99.0); MEAN PLATELET VOLUME 8.9 fL (7.9-10.8); MONOCYTES % (AUTO) 4.6 %; NEUTROPHILS # (AUTO) 17.2 10^3/uL (1.5-6.6); PLT - PLATELET COUNT 499 10^3/uL (130-450); RED BLOOD COUNT 4.44 10^6/uL (4.20-5.40); RED CELL DISTRIBUTION WIDTH 12.7 % (12.0-15.0)
[2021-11-28 09:18] LABS: SLIDE REVIEW? Indicated
[2021-11-28 09:23] LABS: ALBUMIN 4.9 g/dL (3.2-5.5); ALBUMIN/GLOBULIN RATIO 1.6 (1.0-2.2); BILIRUBIN,TOTAL 0.7 mg/dL (0.2-1.0); CALCIUM 9.3 mg/dL (8.5-10.3); CREATININE 0.7 mg/dL (0.4-1.0); POTASSIUM 3.3 mmol/L (3.5-5.0); TOTAL PROTEIN 7.9 g/dL (6.7-8.2)
[2021-11-28] MEDS ORDERED: SODIUM CHLORIDE 0.9% 1,000 ML IV STA (09:34)
[2021-11-28 09:44] LABS: RBC MORPHOLOGY (MULTIPLE) 1+ ANISOCYTOSIS (NORMAL)
[2021-11-28] MEDS ORDERED: DROPERIDOL 5 MG/2 ML VIAL IVP STA (09:50)
--- NOTE | 2021-11-28 09:52 | ED Physician Documentation ---
History of Present Illness - Stated complaint Stated Complaint: VOMITING - Chief complaint Chief Complaint: Abd Pain - History obtained from History obtained from: Patient - Additonal information Additional information: The patient comes to the emergency department with chief complaint of nausea and vomiting that started last night. Patient states she has some pain in her upper abdomen but this is consistent with previous episodes of vomiting that she has had. No fevers or chills. No exposure to anybody with gastroenteritis. Patient is otherwise healthy. No other complaints at this time. Review of Systems Ten Systems: 10 systems reviewed and negative Constitutional: reports: Reviewed and negative Eyes: reports: Reviewed and negative Ears: reports: Reviewed and negative Nose: reports: Reviewed and negative Throat: reports: Reviewed and negative Cardiac: reports: Reviewed and negative Respiratory: reports: Reviewed and negative GI: reports: Abdominal Pain (Cramping), Nausea, Vomiting : reports: Reviewed and negative Skin: reports: Reviewed and negative Musculoskeletal: reports: Reviewed and negative Neurologic: reports: Reviewed and negative Psychiatric: reports: Reviewed and negative Endocrine: reports: Reviewed and negative Immunocompromised: reports: Reviewed and negative PD PAST MEDICAL HISTORY - Past Medical History Cardiovascular: None Respiratory: Asthma, Other Neuro: Seizure disorder Endocrine/Autoimmune: None 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 : None HEENT: None Psych: None Musculoskeletal: Chronic back pain, Other Derm: None - Past Surgical History Past Surgical History: No - Present Medications Home Medications: Ambulatory Orders Medication Instructions Recorded Confirmed Escitalopram [Lexapro] 10 mg PO AC 12/28/20 03/03/21 lamoTRIgine [Lamictal Xr] 300 mg PO DAILY 12/28/20 03/03/21 Promethazine Supp [Phenergan Supp] 25 mg VT ONCE PRN #5 supp 02/28/21 03/03/21 LORazepam [Ativan] 1 mg PO TID PRN #10 tablet 03/03/21 Promethazine Supp [Phenergan Supp] 25 mg [place] Q6HR PRN #5 supp 03/03/21 haloperidoL [Haldol] 1 mg PO Q8H PRN #10 tablet 03/03/21 Ondansetron Odt [Zofran] 4 mg TL Q6H PRN #10 tablet 11/28/21 - Allergies Allergies/Adverse Reactions: Allergies Allergy/AdvReac Type Severity Reaction Status Date / Time amoxicillin Allergy Unknown Verified 03/03/21 19:05 Penicillins Allergy Unknown Verified 03/03/21 19:05 - Social History Does the pt smoke?: No Smoking Status: Never smoker Does the pt drink ETOH?: Yes Does the pt have substance abuse?: Yes - Immunizations Immunizations are current?: Yes - POLST Patient has POLST: No PD ED PE NORMAL - Vitals Vital signs reviewed: Yes - General General: Alert and oriented X 3, Well developed/nourished, Other (The patient appears moderately uncomfortable, intermittently retching, but otherwise in no apparent distress.) - HEENT HEENT: Atraumatic, PERRL, EOMI, Moist mucous membranes - Neck Neck: Supple, no meningeal sign - Cardiac Cardiac: RRR, No murmur, Strong equal pulses - Respiratory Respiratory: No respiratory distress, Clear bilaterally - Abdomen Abdomen: Soft, Non distended, Other (Mild epigastric tenderness, no rebound or guarding.) - Derm Derm: Normal color, Warm and dry, No rash - Extremities Extremities: No deformity, No edema, No calf tenderness / cord - Neuro Neuro: Alert and oriented X 3, 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, Normal speech, Other (Grossly intact) - Psych Psych: Normal mood, Normal affect Results - Vitals Vitals: Vital Signs - 24 hr 11/28/21 11/28/21 11/28/21 08:48 09:20 10:59 Temperature 36.1 C L 36.7 C Heart Rate 66 72 70 Respiratory 18 20 16 Rate Blood Pressure 112/89 H 122/89 H 104/65 O2 Saturation 100 97 98 Oxygen O2 Source Room air - Labs Labs: Laboratory Tests 11/28/21 11/28/21 11/28/21 08:45 09:00 09:00 WBC 21.0 H RBC 4.44 Hgb 13.7 Hct 40.5 MCV 91.2 MCH 30.9 MCHC 33.8 RDW 12.7 Plt Count 499 H MPV 8.9 Neut # (Auto) 17.2 H Lymph # (Auto) 2.5 Blaine # (Auto) 1.0 Eos # (Auto) 0.1 Baso # (Auto) 0.1 Absolute Nucleated RBC 0.00 Nucleated RBC % 0.0 Manual Slide Review Indicated RBC Morph Micro Appear 1+ ANISOCYTOSIS Sodium 138 Potassium 3.3 L Chloride 101 Carbon Dioxide 23 Anion Gap 14.0 H BUN 10 Creatinine 0.7 Estimated GFR (MDRD) 105 Glucose 148 H Calcium 9.3 Total Bilirubin 0.7 AST 25 ALT 16 Alkaline Phosphatase 61 Total Protein 7.9 Albumin 4.9 Globulin 3.0 Albumin/Globulin Ratio 1.6 Lipase 19 L Urine Color YELLOW Urine Clarity CLEAR Urine pH 8.5 H Ur Specific Pharr 1.015 Urine Protein TRACE Urine Glucose (UA) NEGATIVE Urine Ketones TRACE Urine Occult Blood NEGATIVE Urine Nitrite NEGATIVE Urine Bilirubin NEGATIVE Urine Urobilinogen 0.2 (NORMAL) Ur Leukocyte Esterase NEGATIVE Ur Microscopic Review NOT INDICATED Urine Culture Comments NOT INDICATED Urine HCG, Qual NEGATIVE PD MEDICAL DECISION MAKING - ED course Complexity details: reviewed old records, reviewed results, re-evaluated patient, considered differential, d/w patient ED course: The patient was treated symptomatically in the emergency department with first Zofran and then droperidol, and found to be feeling much better with symptoms completely resolved. Her work-up was unremarkable. She had also been hydrated with IV fluids. We have discussed home management of the symptoms, the need for follow-up, and the usual indications for return Departure - Departure Disposition: 01 Home, Self Care Clinical Impression: Vomiting Qualifiers: Vomiting type: bilious vomiting Nausea presence: with nausea Qualified Code(s): R11.14 - Bilious vomiting Condition: Stable Instructions: ED Nausea Vomiting Prescriptions: Ondansetron Odt [Zofran] 4 mg TL Q6H PRN #10 tablet PRN Reason: Nausea / Vomiting Discharge Date/Time: 11/28/21 11:01
[2021-11-28 11:00] VITALS: BP 104/65
== END 2021-11-28 11:01 | disposition home or self-care (01) ==
LOC: ED 08:28
DX: R11.14 Bilious vomiting (principal); R10.13 Epigastric pain
CPT/HCPCS: 36415; 80053; 81003; 81025; 83690; 85025; 96374; 99283; Q0162; 81001; 87086

== ENCOUNTER 2021-11-29 16:12 | Emergency (ER) | payer MEDICAID ==
[2021-11-29] MEDS ORDERED: DROPERIDOL 5 MG/2 ML VIAL IM STA (17:01)
[2021-11-29 18:10] VITALS: BP 132/77
--- NOTE | 2021-11-29 18:16 | ED Physician Documentation ---
PD HPI ABD PAIN - Stated complaint Stated Complaint: D/V/N - Chief complaint Chief Complaint: Abd Pain - History obtained from History obtained from: Patient - Additional information Additional information: PT returns to the ED with CC of return of nausea and vomiting. She was seen yesterday for the same. She reports no new symptoms. The pt went home and was able to tolerate PO until about 1500 today. She has been having some upper abdominal cramping, but no specific pain otherwise. Review of Systems Ten Systems: 10 systems reviewed and negative Constitutional: reports: Reviewed and negative Eyes: reports: Reviewed and negative Ears: reports: Reviewed and negative Nose: reports: Reviewed and negative Throat: reports: Reviewed and negative Cardiac: reports: Reviewed and negative Respiratory: reports: Reviewed and negative GI: reports: Abdominal Pain (cramping), Nausea, Vomiting : reports: Reviewed and negative Skin: reports: Reviewed and negative Musculoskeletal: reports: Reviewed and negative Neurologic: reports: Reviewed and negative Psychiatric: reports: Reviewed and negative Endocrine: reports: Reviewed and negative Immunocompromised: reports: Reviewed and negative PD PAST MEDICAL HISTORY - Past Medical History Past Medical History: Yes Cardiovascular: None Respiratory: Asthma, Other Neuro: Seizure disorder Endocrine/Autoimmune: None 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 : None HEENT: None Psych: Depression, Anxiety Musculoskeletal: Chronic back pain, Other Derm: None - Past Surgical History Past Surgical History: No - Present Medications Home Medications: Ambulatory Orders Medication Instructions Recorded Confirmed Escitalopram [Lexapro] 10 mg PO AC 12/28/20 03/03/21 lamoTRIgine [Lamictal Xr] 300 mg PO DAILY 12/28/20 03/03/21 LORazepam [Ativan] 1 mg PO TID PRN #10 tablet 03/03/21 Promethazine Supp [Phenergan Supp] 25 mg [place] Q6HR PRN #5 supp 03/03/21 haloperidoL [Haldol] 1 mg PO Q8H PRN #10 tablet 03/03/21 Ondansetron Odt [Zofran] 4 mg TL Q6H PRN #10 tablet 11/28/21 11/29/21 Albuterol Sulfate [Proair Hfa 1 - 2 puffs INH Q4H PRN 11/29/21 11/29/21 Inhaler] Ipratropium/Albuterol [Combivent 1 puffs IH QID PRN 11/29/21 11/29/21 Respimat] haloperidoL [Haloperidol] 5 mg PO BID PRN #10 tablet 11/29/21 - Allergies Allergies/Adverse Reactions: Allergies Allergy/AdvReac Type Severity Reaction Status Date / Time amoxicillin Allergy Unknown Verified 11/29/21 16:16 Penicillins Allergy Unknown Verified 11/29/21 16:16 - Social History Does the pt smoke?: No Smoking Status: Never smoker Does the pt drink ETOH?: Yes Does the pt have substance abuse?: Yes Substance Use and Type: Marijuana, Cocaine/Crack, Other - Immunizations Immunizations are current?: No - POLST Patient has POLST: No PD ED PE NORMAL - Vitals Vital signs reviewed: Yes - General General: Alert and oriented X 3, No acute distress, Other (some retching intermittently) - HEENT HEENT: Atraumatic, PERRL, EOMI, Moist mucous membranes, Other (no icterus) - Cardiac Cardiac: RRR, No murmur - Respiratory Respiratory: No respiratory distress, Clear bilaterally - Abdomen Abdomen: Normal bowel sounds, Soft, Non tender, Non distended - Derm Derm: Warm and dry - Extremities Extremities: No deformity - Neuro Neuro: Alert and oriented X 3 - Psych Psych: Normal mood, Normal affect Results - Vitals Vitals: Vital Signs - 24 hr 11/29/21 11/29/21 16:16 18:09 Temperature 36.5 C 36.6 C Heart Rate 74 74 Respiratory 16 20 Rate Blood Pressure 130/90 H 132/77 H O2 Saturation 100 100 Oxygen O2 Source Room air Departure - Departure Disposition: 01 Home, Self Care Clinical Impression: Cyclical vomiting, Cannabinoid hyperemesis syndrome Condition: Stable Instructions: ED Nausea Vomiting Prescriptions: haloperidoL [Haloperidol] 5 mg PO BID PRN #10 tablet PRN Reason: Nausea / Vomiting Discharge Date/Time: 11/29/21 18:24
== END 2021-11-29 18:24 | disposition home or self-care (01) ==
LOC: ED 16:12
DX: R11.15 Cyclical vomiting syndrome unrelated to migraine (principal)
CPT/HCPCS: 96372; 99283

== ENCOUNTER 2024-04-14 09:45 | Outpatient (CLI) | payer MEDICAID | END 2024-04-14 23:59 | disposition critical access hospital (66) | LOC: EMS 09:45 | DX: O21.9 Vomiting of pregnancy, unspecified (principal) | CPT/HCPCS: A0425; A0429; A0999 ==

== ENCOUNTER 2024-04-14 09:58 | Emergency (ER) | payer MEDICAID ==
[2024-04-14 10:19] VITALS: BP 103/77
[2024-04-14] MEDS: SODIUM CHLORIDE 0.9% 1,000 ML IV STA (11:05)
[2024-04-14] MEDS: PROMETHAZINE INJ 25 MG in SODIUM CHLORIDE 0.9% 50 ML IV STA (11:11)
[2024-04-14] MEDS ORDERED: PROMETHAZINE 25 MG/1 ML VIAL ONE (11:12)
--- NOTE | 2024-04-14 12:59 | ED Physician Documentation ---
PD HPI ABD PAIN - Stated complaint Stated Complaint: N/V - Chief complaint Chief Complaint: Abd Pain - History obtained from History obtained from: Patient - Additional information Additional information: Patient comes to the emergency department chief complaint of pelvic pain and nausea vomiting. She states she is somewhere less than 12 weeks and that this happens every time she gets . She states she is getting in 3 days and is having an ultrasound then but has not had an ultrasound yet. She denies any vaginal bleeding or discharge. She states that she just has pain across her low abdomen/pelvis and that seems to come in waves. No change in bowel movements. No fevers. No other complaints at this time. 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 : None HEENT: None Psych: Depression, Anxiety Musculoskeletal: Chronic back pain, Other Derm: None - Past Surgical History Past Surgical History: No - Present Medications Home Medications: Ambulatory Orders Medication Instructions Recorded Confirmed Promethazine Supp [Phenergan Supp] 25 mg [place] Q6H PRN #20 supp 04/14/24 - Allergies Allergies/Adverse Reactions: Allergies Allergy/AdvReac Type Severity Reaction Status Date / Time amoxicillin Allergy Unknown Verified 04/14/24 10:13 Penicillins Allergy Unknown Verified 04/14/24 10:13 - Social History Does the pt smoke?: No Smoking Status: Never smoker Does the pt drink ETOH?: Yes Does the pt have substance abuse?: Yes Substance Use and Type: Marijuana - Immunizations Immunizations are current?: No - POLST Patient has POLST: No PD ED PE NORMAL - Vitals Vital signs reviewed: Yes - General General: Alert and oriented X 3, Well developed/nourished, Other (The patient appears visibly uncomfortable but otherwise no apparent distress.) - HEENT HEENT: Atraumatic, EOMI, Moist mucous membranes - Neck Neck: Supple, no meningeal sign - Cardiac Cardiac: RRR, No murmur - Respiratory Respiratory: No respiratory distress, Clear bilaterally - Abdomen Abdomen: Soft, Non distended, Other (Moderate tenderness palpation across low abdomen/pelvis, no rebound or guarding.) - Derm Derm: Normal color, Warm and dry, No rash - Extremities Extremities: No deformity, No edema - Neuro Neuro: Other (Alert, grossly intact.) - Psych Psych: Normal mood, Normal affect Results - Vitals Vitals: Vital Signs - 24 hr 04/14/24 10:05 Temperature 37.3 C Heart Rate 64 Respiratory 20 Rate Blood Pressure 103/77 O2 Saturation 100 Oxygen O2 Source Room air - Rads (name of study) OB ultrasound first trimester Relevant Findings:: Final report received, See rad report (Roughly 6 weeks intrauterine , viable.) PD Medical Decision Making - ED course Complexity details: reviewed results, re-evaluated patient, considered differential, d/w patient ED course: Patient was treated symptomatically in the emergency department. Because of her pelvic pain in the setting of early and the fact that she had not had an ultrasound yet, I did feel she should have an ultrasound here to evaluate for possible ectopic . This was done and showed a viable intrauterine . 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 We have discussed the usual indications for return. The patient is feeling better after symptomatic treatment. Departure - Departure Disposition: 01 Home, Self Care Clinical Impression: Hyperemesis gravidarum Condition: Stable Instructions: ED Preg Morning Sickness Prescriptions: Promethazine Supp [Phenergan Supp] 25 mg MN Q6H PRN #20 supp PRN Reason: Nausea / Vomiting Comments: A prescription for nausea medicine has been electronically transmitted to the [facility] in [place].
[2024-04-14 13:12] VITALS: O2SAT 99
--- NOTE | 2024-04-14 13:24 | Ultrasound Report ---
PROCEDURE: OB 1st Trimester INDICATIONS: low abd/pelvic pain,<12 w preg OUTSIDE/PRIOR DATING DATA: Last menstrual period (LMP): Unknown. LMP-based estimated date of delivery (JIAN): Unknown. First dating scan (date and location): 04/14/2024. Estimated date of delivery (JIAN) from first dating scan: 12/05/2024. TECHNIQUE: Real-time scanning was performed transabdominally of the fetus and maternal pelvic organs, with image documentation. Patient refused transvaginal scanning. COMPARISON: None. FINDINGS: Intrauterine gestational sac present. Embryo: Ewing-rump length of 0.63 cm corresponding to estimated age of 6 weeks, 3 days. Yolk s ac is present. Heart rate: 126 bpm. Other: No perigestational fluid collection. Measurement variability in dating: +/- 4 weeks by LMP, +/- 7 days by mean sac diameter (use before 6 weeks gestation if crown-rump length not able to be measured), +/- 5 days by crown-rump length (6-12 weeks gestation). Maternal organs: Right corpus luteum cyst is visualized measuring 1.4 x 1.1 x 1.2 cm. Left ovary is n ot visualized. . Cervix is closed. IMPRESSION: Single intrauterine gestation with estimated age of 6 weeks, 3 days by crown-rump length. Heart rate of 126 bpm. Yolk sac is visualized. Limited transabdominal visualization of the ovaries. Right corpus luteum cyst measuring up to 1.4 cm. Left ovary is not visualized. Reviewed by: Gabriela Kuo MD, PhD on 04/14/2024 12:23 PM ROBERT Approved by: Gabriela Kuo MD, PhD on 04/14/2024 12:23 PM ROBERT Station ID: [id number]
== END 2024-04-14 13:10 | disposition home or self-care (01) ==
LOC: EDUNIT# → ED 09:58
DX: O21.0 Mild hyperemesis gravidarum (principal); Z3A.01 Less than 8 weeks gestation of pregnancy
CPT/HCPCS: 76801; 96365; 99283; 99284; J7040

== ENCOUNTER 2024-04-16 10:48 | Emergency (ER) | payer MEDICAID ==
--- NOTE | 2024-04-16 11:09 | ED Physician Documentation ---
PD HPI ABD PAIN - Stated complaint Stated Complaint: VOMITING,ABD PX - Chief complaint Chief Complaint: Abd Pain - History obtained from History obtained from: Patient - Additional information Additional information: G3, P1 at a little over 6 weeks gestation via unremarkable ultrasound done 2 days ago with IUP. She has hyperemesis with all prior pregnancies has been vomiting 4 days with diffuse abdominal pain. She received a prescription for Phenergan suppositories 2 days ago which has been minimally helpful. Denies blood in the emesis. No fevers. Planning on tomorrow. 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 HEENT: None Psych: Depression, Anxiety Musculoskeletal: Chronic back pain, Other Derm: None - Past Surgical History Past Surgical History: No - Present Medications Home Medications: Ambulatory Orders Medication Instructions Recorded Confirmed Promethazine Supp [Phenergan Supp] 25 mg ND Q6H PRN #20 supp 04/14/24 04/16/24 Metoclopramide [Reglan] 10 mg PO Q6H PRN #20 tablet 04/16/24 - Allergies Allergies/Adverse Reactions: Allergies Allergy/AdvReac Type Severity Reaction Status Date / Time amoxicillin Allergy Unknown Verified 04/16/24 10:51 Penicillins Allergy Unknown Verified 04/16/24 10:51 - Social History Does the pt smoke?: No Smoking Status: Former smoker Does the pt drink ETOH?: No Does the pt have substance abuse?: No - Immunizations Immunizations are current?: No - POLST Patient has POLST: No PD ED PE NORMAL - Vitals Vital signs reviewed: Yes - General General: Alert and oriented X 3, No acute distress - Abdomen Abdomen: Soft, Non tender - Neuro Neuro: Alert and oriented X 3 Results - Vitals Vitals: Vital Signs - 24 hr 04/16/24 10:52 Temperature 37.3 C Heart Rate 84 Respiratory 28 H Rate Blood Pressure 131/84 H O2 Saturation 100 Oxygen O2 Source Room air - Labs Labs: Laboratory Tests 04/16/24 11:05 Sodium 131 L Potassium 3.1 L Chloride 93 L Carbon Dioxide 29 Anion Gap 9.0 BUN 12 Creatinine 0.6 Estimated GFR (MDRD) 122 Glucose 107 H Calcium 10.1 Magnesium 1.9 Total Bilirubin 2.2 H AST 40 ALT 105 H Alkaline Phosphatase 51 Total Protein 8.0 Albumin 5.1 Globulin 2.9 Albumin/Globulin Ratio 1.8 PD Medical Decision Making - ED course ED course: Review of CMP shows actually fairly significant hyponatremia which is new as well as hypokalemia. These are probably signs of volume and electrolyte loss. She has mild elevation in her bilirubin which she has had before albeit this is somewhat higher than previous values, also mild elevation of the ALT which is new from prior labs. Departure - Departure Disposition: 01 Home, Self Care Clinical Impression: Vomiting during Condition: Good Record reviewed to determine appropriate education?: Yes Instructions: ED Preg Morning Sickness Prescriptions: Metoclopramide [Reglan] 10 mg PO Q6H PRN #20 tablet PRN Reason: nausea or headache Comments: I sent your prescription electronically to the [facility] in [place]. Call your doctor to arrange a follow-up appointment, make the next available appointment. In the interim, return anytime if worse or if new symptoms develop. Your labs today were notable for low potassium and sodium, likely from the vomiting. You also had mild elevation in your bilirubin which we have seen with you before and in some people can be related to an illness. Make sure your primary care physician knows about this. Forms: PCP List
[2024-04-16 11:30] LABS: ALBUMIN 5.1 g/dL (3.2-5.5); ALBUMIN/GLOBULIN RATIO 1.8 (1.0-2.2); BILIRUBIN,TOTAL 2.2 mg/dL (0.2-1.0); CALCIUM 10.1 mg/dL (8.5-10.3); CREATININE 0.6 mg/dL (0.6-1.3); MAGNESIUM 1.9 mg/dL (1.7-2.3); POTASSIUM 3.1 mmol/L (3.5-4.5)
[2024-04-16] MEDS: PROMETHAZINE INJ 25 MG in SODIUM CHLORIDE 0.9% 50 ML IV STA (11:30)
[2024-04-16] MEDS: SODIUM CHLORIDE 0.9% 1,000 ML IV STA (11:30)
[2024-04-16] MEDS: HYDROmorphone 1 MG/ML CARPUJECT IVP STA (12:00)
[2024-04-16] MEDS: LACTATED RINGERS 1,000 ML IV STA (12:01)
[2024-04-16] MEDS: POTASSIUM CHLOR 10 MEQ/100 ML 10 MEQ/100 ML BAG IV ONE (12:01)
[2024-04-16] MEDS: POTASSIUM BICARB 25 MEQ TABLET PO STA ×2 (12:10→12:51)
[2024-04-16 13:25] VITALS: BP 128/82; O2SAT 100
== END 2024-04-16 13:24 | disposition home or self-care (01) ==
LOC: ED 10:48
DX: O26.891 Other specified pregnancy related conditions, first trimester (principal); R11.10 Vomiting, unspecified; R74.01 Elevation of levels of liver transaminase levels; O99.281 Endocrine, nutritional and metabolic diseases complicating pregnancy, first trimester; E80.6 Other disorders of bilirubin metabolism; E87.1 Hypo-osmolality and hyponatremia; E87.6 Hypokalemia; Z3A.01 Less than 8 weeks gestation of pregnancy
CPT/HCPCS: 36415; 80053; 83735; 96361; 96365; 96375; 99283; 99284; A9270; J1170; J7040; J7120